=== PATIENT | male | born 1960 | race Caucasian/White ===

== ENCOUNTER 2018-05-01 20:40 | Emergency (ER) | payer MEDICARE, MEDICAID, SELFPAY ==
[2018-05-01 20:41] VITALS: BP 145/81; PULSE 74; RESP 16; TEMP 36.6; O2SAT 96; BMI 32.0
[2018-05-01] MEDS: 0.9% Normal Saline 1,000 ML 125 ML IV (21:11)
[2018-05-01 21:32] LABS: Anion Gap 7 (5-15); BUN 29 mg/dL (7-18); BUN/Creat Ratio 25.9 RATIO (10-20); Calcium,Total 8.9 mg/dL (8.5-10.1); Chloride 109 mmol/L (98-107); Creatinine, Serum 1.12 mg/dL (0.70-1.30); EST Glomerular Filtration Rate 71 mL/min (>60); Est Glom Filt Rate - Afr Amer 86 mL/min (>60); Estimated Creatinine Clearance 73.33 ml/min; Glucose 98 mg/dL (74-106); Potassium 3.4 mmol/L (3.5-5.1); Sodium Level 142 mmol/L (136-145)
[2018-05-01 21:35] LABS: Absolute Lymphocyte Count 4.97 X10^3/ul (0.83-4.51); Absolute Neutrophil Count 5.7 X10^3/uL (2.0-7.7); Basophil# 0.04 X10^3/uL; Basophil% 0.3 % (0-1); Eosinophil# 0.24 X10^3/uL; Hematocrit 46.3 % (40-54); Hemoglobin 15.6 g/dl (13.0-16.5); Lymphocyte # 4.97 X10^3/ul (4.0); Lymphocyte % 40.8 % (19-41); Mean Corp Hgb Conc 33.7 g/gl (32-36); Mean Corpuscular Hgb 31.6 pg (27.0-32.0); Mean Corpuscular Volume 93.9 fL (80-94); Monocyte# 1.23 X10^3/uL; Monocyte% 10.1 % (0-10); Neutrophil # 5.68 X10^3/uL (2.7-7.7); Neutrophil % 46.6 % (47-70); POSITIVE COUNT NO; POSITIVE DIFFERENTIAL NO; POSITIVE MORPHOLOGY NO; Platelet Count 169 K/mm3 (150-450); RBC Distribution Width CV 14.2 % (11.6-14.6); RBC Distribution Width SD 47.2 fl (35.1-43.9); Red Blood Count 4.93 M/mm3 (4.6-6.2); White Blood Count 12.2 K/mm3 (4.4-11.0)
--- NOTE | 2018-05-01 21:46 | ED.DCSUM_ITS ---
- ER Visit Summary Date of Service: 05/01/18 Chief Complaint: [Rectal bleeding] History of Present Illness: The patient is a 58 M [presents to the emergency department with rectal bleeding started half an hour ago. Patient states that he felt like he needed to have a bowel movement and initially passed stool that was performed followed by blood dripping into the toilet. Patient states that Dripping noticed some couple small clots for about 15 minutes before it resolved. Patient denies any abdominal pain. He denies any rectal trauma. He has never had anything like this happen before. He denies recent illness. Patient is not currently on any blood thinners. He does have a history of hypertension, peptic ulcer disease, pancreatitis, and coronary artery disease. Patient states that his last colonoscopy was about 3 years ago when he had some polyps noted at that time.] Physical Examination: HEENT-PERRLA, EOMI. Cranial nerves II through XII grossly intact. TMs clear. Mucous membranes moist. No adenopathy. Cardiovascular-regular rate and rhythm without murmur or ectopy Lungs-clear to auscultation, chest wall stable without crepitus or subcu emphysema Abdomen-normoactive bowel sounds, soft, nontender, no rebound or rigidity, no peritoneal signs. Rectal exam-patient had some gross blood noted around the anus with no external hemorrhoids noted. Patient did have palpable internal hemorrhoid about 6 o'clock position. There is no active bleeding currently. Extremities-intact ?4, normal range of motion, normal pulses, atraumatic] Test Results: [Orthostatic vital signs were negative. CBC with differential obtained showed a white blood cell count of 12.2, hemoglobin 15.6, hematocrit 46, platelets 169. Chemistries were unremarkable. BUN was 29 and creatinine was 1.12.] Emergency Department Course and Treatment: [Patient case was discussed with Dr. Justin Russell who is on for general surgery. I feel patient is stable for discharge to home. He has had no further bleeding in the department.] Treatment Plan: [Follow-up with general surgery for further evaluation possible colonoscopy. Patient advised to return if persistent heavy bleeding, lightheadedness, [place] pain, fever, or condition should worsen anyway.] Disposition: [Discharged home in stable condition] Impression: [Lower GI bleed-stable] This note was generated with [employer] software. It may contain incorrect words, spelling, and punctuation that were not noted in review of the chart prior to signing ED Disposition - Plan for ED Patient: Chief Complaint: GI Bleed Referrals: Paula Espinosa MD [Primary Care Provider] -
--- NOTE | 2018-05-01 21:46 | ED.DEP ---
ED Disposition - Plan for ED Patient: Chief Complaint: GI Bleed Instructions: ED Bleed UGI Stable Referrals: Paula Espinosa MD [Primary Care Provider] - Justin Tucker MD [STAFF PHYSICIAN] - 3-5 Days
[2018-05-01 21:59] VITALS: BP 131/78; BP 144/93; BP 145/85; PULSE 59; PULSE 61; PULSE 63
--- OUTSIDE RECORDS SUMMARY | 2018-08-03 14:04 | XMS RPT_ITS ---
:1960 Author Organization [place] Care Team Providers Name Role Phone Jesús [facility] Unavailable Selena Faust Attending Unavailable TALAMPAS, TUTU D Referring Unavailable TALAMPAS, TUTU D Attending Unavailable MARITZA HUGHES (LEASING MACHINE TENDER) Referring Unavailable TALAMPAS, TUTU Cassi Referring Unavailable TALAMPAS, TUTU D Attending Unavailable MARITZA HUGHES (LEASING MACHINE TENDER) Referring Unavailable OVI HUTCHISON Attending Unavailable OVI HUTCHISON Referring Unavailable OVI HUTCHISON Attending Unavailable SAEED FRAUSTO (KICK PRESS OPERATOR) Referring Unavailable OVI HUTCHISON Attending Unavailable IMCA Referring Unavailable TALAMPAS, TUTU Primary Care Unavailable OVI HUTCHISON Attending Unavailable OVI HUTCHISON Referring Unavailable TALAMPAS, TUTU Primary Care Unavailable PROBLEMS PROBLEMS DATE TYPE CONDITION / CODE ATTENDING STATUS SOURCE 04/04/2018 Active Pure NA Active [place] [facility] , unspecified / [place] E78.00(ICD-10) Repository 10/05/2017 Active Unknown / TALAMPAS, TUTU Active [place] UNK(Unknown) [facility] [place] Repository 09/10/2017 Active Atherosclerotic FOSTER, Active [place] heart disease of [facility] Other [place] coronary [place] artery without Repository angina pectoris / I25.10(ICD-10) 09/10/2017 Active Essential (primary) FOSTER, Active [place] hypertension / [facility] Other I10(ICD-10) [place] Repository 09/10/2017 Admitting Unknown / FOSTER, Active [place] [facility] diagnosis UNK(Unknown) [facility] Repository 08/19/2017 Active Impaired fasting NA Active [place] glucose / [facility] Main R73.01(ICD-10) [place] Repository 08/19/2017 Active Other care home NA Active [place] (current) [facility] Main therapy / [place] Z79.899(ICD-10) Repository PROCEDURES PROCEDURES No Procedure Records FoundRESULTS RESULTS PROGRESS Observed: 05/25/2018 Status: COMPLETED Source: [place] 1:17 PM [facility] REPOSITORY HNO ID: [id number] Author: Ovi Hutchison Service: (none) Author Type: Physician Type: Progress Notes Filed: 05/25/2018 6:08 PM Note Text: PERTINENT CARDIAC HISTORY ASHD - PCI Cx 2008 HTN HL Tobaccoism ADHERENCE TO GUIDELINES SARAHI-I or ARB for HF with prior LVEF<40 (NQF 0081) - N/A ASA or Plavix for ASHD (NQF 0067) - ,et Beta sirena for ASHD with prior AR or prior LVEF<40 (NQF 0070) - N/A Beta sirena for HF with prior LVEF<40 (NQF 0083) - N/A SARAHI-I or ARB for ASHD with DM or prior LVEF<40 (NQF 0066) - met Statin therapy for ASHD or FHL or DM - met BMI documented and plan if >25 (NQF 0421) - lifestyle recommendation form Tobacco use screening and referral (NQF 0028) - lifestyle recommendation form Recommendation for whole food, plant based diet - lifestyle recommendation form CLINICAL IMPRESSION/PLAN: Raphael Davis is doing well. His coronary disease is well compensated. Blood pressure could use better control. He has been taking Prinivil and nonsteroidal in the morning. I suggested that he change the timing of his Prinivil to bedtime. I've asked him to contact me with vital signs next week. We may need to increase lisinopril for better blood pressure control. I've encouraged him to continue exercise. He tells me that he is not yet bad enough to have surgery on his spinal stenosis. I recommend follow-up in 8 months or as needed. Written and verbal health teaching given to patient, patient verbalizes understanding and agrees with treatment plan. DIAGNOSIS FOR VISIT: ASHD Hypertension HISTORY OF PRESENT ILLNESS Raphael Davis returns for follow-up of his coronary disease and hypertension. He has been limited somewhat by his spinal stenosis but still walks. He's had no chest discomfort. He denies orthopnea, edema, syncope, palpitations, TIAs, amaurosis or claudication. ALLERGIES: ALLERGIES Allergen Reactions - Bees Anaphylaxis - Penicillins Vomiting Can take amoxil - Shellfish Itching given benadryl with heart cath dye - tolerated - Simvastatin Other: See Comments CK Elevations and body aches - Sulfa (Sulfonamide * Doesn't know CURRENT OUTPATIENT MEDICATIONS: lisinopril (ZESTRIL, PRINIVIL) 5 mg tablet Take 1 tablet by mouth daily at bedtime. predniSONE (DELTASONE) 10 mg tablet Take 1-2 tablets by mouth once daily as needed. As directed nitroglycerin sublingual (NITROQUICK) 0.4 mg SL tablet Dissolve 1 tablet under the tongue every 5 minutes as needed for Chest Pain. IF NO PAIN RELIEF, CALL 911 cyclobenzaprine (FLEXERIL) 10 mg tablet Take 0.5-1 tablets by mouth three times daily as needed for Muscle Spasm. ibuprofen (MOTRIN) 600 mg tablet Take 1 tablet by mouth every 6 hours as needed for Pain. Take with food and stay hydrated sildenafil (VIAGRA) 50 mg tablet Take 1 tablet by mouth as needed. TAKE 30-60 MINUTES BEFORE SEXUAL INTERCOURSE NEEDED. ranitidine (ZANTAC) 150 mg tablet Take 1 tablet by mouth twice daily. atorvastatin (LIPITOR) 80 mg tablet Take 0.5 tablets by mouth once daily. fexofenadine (MARIELY) 180 mg tablet Take 1 tablet by mouth once daily as needed. (for allergies and congestion associated with vertigo) metoprolol succinate ER (TOPROL XL) 50 mg 24 hr tablet Take 0.5 tablets by mouth twice daily. aspirin, enteric coated (ECOTRIN LOW STRENGTH) 81 mg EC tablet Take 1 tablet by mouth once daily. PHYSICAL EXAMINATION: VITAL SIGNS: BP 150/89 Pulse 70 Ht 5' 10 (1.78m) Wt 218 lb 12.8 oz (99.2kg) BMI 31.39 kg/(m2). Chest: Clear to auscultation. Trachea is midline. Air entry is equal. Cardiac: Regular rhythm. S1 and S2 are normal. PMI is nondisplaced. There is a soft systolic ejection murmur. Carotids are brisk without bruits. JVP is less than 10 cm. Abdomen: Soft and nontender. There are no pulsatile masses or bruits. No liver enlargement. Bowel sounds are active. Extremities: No edema. Pulses are intact and symmetrical. Recent labs were reviewed. Renal function is normal. LDL was 89. Electronically Signed: Ovi Hutchison MD May 25, 2018 1:17 PM CC: Tutu Espinosa MD CNOV Observed: 05/25/2018 Status: COMPLETED Source: [place] 1:00 PM [facility] REPOSITORY Office Visit (CAWSTR) RAPHAEL DAVIS ([id number]) 1960 M Date Time Provider Department 05/25/18 1:00 PM OVI HUTCHISON CAWSTR During your visit today, we recorded the following information about you: Pulse Blood pressure Weight Height 70/minute 150/89 99.2 kg 1.778 m Ovi Hutchison MD 05/25/2018 6:08 PM Signed PERTINENT CARDIAC HISTORY ASHD - PCI Cx 2008 HTN HL Tobaccoism ADHERENCE TO GUIDELINES SARAHI-I or ARB for HF with prior LVEF<40 (NQF 0081) - N/A ASA or Plavix for ASHD (NQF 0067) - ,et Beta sirena for ASHD with prior AR or prior LVEF<40 (NQF 0070) - N/A Beta sirena for HF with prior LVEF<40 (NQF 0083) - N/A SARAHI-I or ARB for ASHD with DM or prior LVEF<40 (NQF 0066) - met Statin therapy for ASHD or FHL or DM - met BMI documented and plan if >25 (NQF 0421) - lifestyle recommendation form Tobacco use screening and referral (NQF 0028) - lifestyle recommendation form Recommendation for whole food, plant based diet - lifestyle recommendation form CLINICAL IMPRESSION/PLAN: Raphael Davis is doing well. His coronary disease is well compensated. Blood pressure could use better control. He has been taking Prinivil and nonsteroidal in the morning. I suggested that he change the timing of his Prinivil to bedtime. I've asked him to contact me with vital signs next week. We may need to increase lisinopril for better blood pressure control. I've encouraged him to continue exercise. He tells me that he is not yet bad enough to have surgery on his spinal stenosis. I recommend follow-up in 8 months or as needed. Written and verbal health teaching given to patient, patient verbalizes understanding and agrees with treatment plan. DIAGNOSIS FOR VISIT: ASHD Hypertension HISTORY OF PRESENT ILLNESS Raphael Davis returns for follow-up of his coronary disease and hypertension. He has been limited somewhat by his spinal stenosis but still walks. He's had no chest discomfort. He denies orthopnea, edema, syncope, palpitations, TIAs, amaurosis or claudication. ALLERGIES: ALLERGIES Allergen Reactions - Bees Anaphylaxis - Penicillins Vomiting Can take amoxil - Shellfish Itching given benadryl with heart cath dye - tolerated - Simvastatin Other: See Comments CK Elevations and body aches - Sulfa (Sulfonamide * Doesn't know CURRENT OUTPATIENT MEDICATIONS: lisinopril (ZESTRIL, PRINIVIL) 5 mg tablet Take 1 tablet by mouth daily at bedtime. predniSONE (DELTASONE) 10 mg tablet Take 1-2 tablets by mouth once daily as needed. As directed nitroglycerin sublingual (NITROQUICK) 0.4 mg SL tablet Dissolve 1 tablet under the tongue every 5 minutes as needed for Chest Pain. IF NO PAIN RELIEF, CALL 911 cyclobenzaprine (FLEXERIL) 10 mg tablet Take 0.5-1 tablets by mouth three times daily as needed for Muscle Spasm. ibuprofen (MOTRIN) 600 mg tablet Take 1 tablet by mouth every 6 hours as needed for Pain. Take with food and stay hydrated sildenafil (VIAGRA) 50 mg tablet Take 1 tablet by mouth as needed. TAKE 30-60 MINUTES BEFORE SEXUAL INTERCOURSE NEEDED. ranitidine (ZANTAC) 150 mg tablet Take 1 tablet by mouth twice daily. atorvastatin (LIPITOR) 80 mg tablet Take 0.5 tablets by mouth once daily. fexofenadine (MARIELY) 180 mg tablet Take 1 tablet by mouth once daily as needed. (for allergies and congestion associated with vertigo) metoprolol succinate ER (TOPROL XL) 50 mg 24 hr tablet Take 0.5 tablets by mouth twice daily. aspirin, enteric coated (ECOTRIN LOW STRENGTH) 81 mg EC tablet Take 1 tablet by mouth once daily. PHYSICAL EXAMINATION: VITAL SIGNS: BP 150/89 Pulse 70 Ht 5' 10 (1.78m) Wt 218 lb 12.8 oz (99.2kg) BMI 31.39 kg/(m2). Chest: Clear to auscultation. Trachea is midline. Air entry is equal. Cardiac: Regular rhythm. S1 and S2 are normal. PMI is nondisplaced. There is a soft systolic ejection murmur. Carotids are brisk without bruits. JVP is less than 10 cm. Abdomen: Soft and nontender. There are no pulsatile masses or bruits. No liver enlargement. Bowel sounds are active. Extremities: No edema. Pulses are intact and symmetrical. Recent labs were reviewed. Renal function is normal. LDL was 89. Electronically Signed: Ovi Hutchison MD May 25, 2018 1:17 PM CC: MD Ovi Waller MD 05/25/2018 1:18 PM Signed LIFESTYLE CHANGE A healthy lifestyle is the most important component of your overall treatment plan. Please give serious thought to the following areas and commit to making terminal manager changes. EAT A WHOLE FOOD, PLANT BASED DIET The nutrition your body gets is more important than the medicine you take. What matters most is the overall way you eat. We encourage you to minimize the use of animal products (which include dairy and all meats except fatty fish) and use whole, unprocessed plant foods to provide your protein, vitamins and other nutrients. We have a lot of information to share with you on this topic. This is not a diet. It is a way of life that you will keep with you. EXERCISE REGULARLY It is not important to spend hours in the gym, lifting weights and perspiring heavily. A total of 2-3 hours per week of aerobic (causing you to be moderately short of breath) exercise is sufficient to improve your health. Talk to us before you begin a new exercise program, if you have heart disease or experience shortness of breath or chest pain. REDUCE STRESS Chronic emotional and physical stress leads to disease. Ways of reducing stress include meditation, visualization, prayer, yoga and other forms of relaxation therapy. Consistency is the ceja. Find a technique that works for you and do it every day. CULTIVATE RELATIONSHIPS Loneliness and isolation have a major negative impact on health. Seek out others who can love, care for and nurture you. Avoid hurtful relationships. MAINTAIN IDEAL BODY WEIGHT The best way to do this is to do all the things above. Our bodies naturally find the right weight if we keep moving and feed ourselves the right food. If your BMI is greater than 25, we strongly recommend a referral to a weight management program. Please speak to us or your family physician about available programs. AVOID NICOTINE IN ALL FORMS This includes all tobacco products, whether chewed, smoked, vaped, or rubbed on the skin. Smoking cessation programs, which can make use of tobacco substitutes, medications to suppress cravings and behavior management, are available. Please contact your family physician about programs in your area. Referring Provider: OVI HUTCHISON [[id number]] Allergies As of Date: 05/25/2018 Noted Allergy Reaction BEES 03/01/2008 10 - Anaphylaxis PENICILLINS 06/04/2006 11 - Vomiting Comments: Can take amoxil SHELLFISH 10/31/2007 9 - Itching Comments: given benadryl with heart cath dye - tolerated SIMVASTATIN 12/10/2015 14 - Other: See Comments Comments: CK Elevations and body aches SULFA (SULFONAMIDE ANTIBIOTICS) 10/31/2007 Comments: Doesn't know Date Reviewed: 05/25/2018 Reviewed by: Lori Calloway MA - Fully Assessed Reason for Visit: Established Patient [175] Primary Visit Diagnosis:Essential hypertension [I10] Other Visit Diagnosis:ASHD (arteriosclerotic heart disease) [I25.10] Order(s):lisinopril (ZESTRIL, PRINIVIL) 5 mg tabletTake 1 tablet by mouth daily at bedtime.Disp: Rfl: Prescriptions as of 05/25/2018 Sig: LISINOPRIL 5 MG TABLET Take 1 tablet by mouth daily * PREDNISONE 10 MG TABLET Take 1-2 tablets by mouth onc* NITROGLYCERIN 0.4 MG SUBLINGU* Dissolve 1 tablet under the t* CYCLOBENZAPRINE 10 MG TABLET Take 0.5-1 tablets by mouth t* IBUPROFEN 600 MG TABLET Take 1 tablet by mouth every * SILDENAFIL 50 MG TABLET Take 1 tablet by mouth as nee* RANITIDINE 150 MG TABLET Take 1 tablet by mouth twice * ATORVASTATIN 80 MG TABLET Take 0.5 tablets by mouth onc* FEXOFENADINE 180 MG TABLET Take 1 tablet by mouth once d* METOPROLOL SUCCINATE ER 50 MG* Take 0.5 tablets by mouth twi* ASPIRIN 81 MG TABLET,DELAYED * Take 1 tablet by mouth once d* Problem List As Of Date 05/25/2018 Noted Resolved Coronary atherosclerosis [I25.10] Other acute and subacute form of ischemic heart*INVALID FOR*11/01/2016 More... Family history of diabetes mellitus [Z83.3] INVALID FOR*05/02/2015 Family history of ischemic heart disease [Z82.4*INVALID FOR*05/02/2015 TOBACCO USE DISORDER [F17.200] INVALID FOR* More... More... Hyperlipidemia [E78.5] INVALID FOR* Tear of medial cartilage or meniscus of knee, c*INVALID FOR*05/02/2015 Pain in Joint, Shoulder Region [M25.519] INVALID FOR* Other affections of shoulder region, not elsewh*INVALID FOR*05/02/2015 Biceps tendonitis [M75.20] INVALID FOR*05/02/2015 Spinal stenosis, lumbar region, without neuroge*INVALID FOR* More... Capsulitis [M77.9] INVALID FOR*05/02/2015 GUERA (obstructive sleep apnea) [G47.33] More... 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] INVALID FOR* Actinic Keratoses: Premalignant AK's [L57.0] INVALID FOR* Other Seborrheic Keratoses [L82.1] INVALID FOR* Excoriation [T14.8XXA] INVALID FOR*05/02/2015 Solar Lentigines [L81.4] INVALID FOR* Ephelides [L81.2] INVALID FOR* Actinic skin damage [L57.8] INVALID FOR*05/02/2015 Chronic back pain [M54.9, G89.29] INVALID FOR* Lumbar spondylosis [M47.816] INVALID FOR* Ulnar neuropathy of left upper extremity [G56.2*INVALID FOR* Neoplasm of Uncertain Behavior (NUB) of skin: R*INVALID FOR* Scar condition and fibrosis of skin [L90.5] INVALID FOR*05/02/2015 Hypertrophic scar [L91.0] INVALID FOR* Keloid scar [L91.0] INVALID FOR* Personal history of other malignant neoplasm of*INVALID FOR*03/18/2013 Surgical Scars [L90.5] INVALID FOR*05/02/2015 Postinflammatory skin changes [R23.4] INVALID FOR*05/02/2015 H/O BCC Skin Cancer left confucianist: S/P Moh's Surg*INVALID FOR*05/02/2015 Acute pancreatitis [K85.90] INVALID FOR*04/26/2017 BPH (benign prostatic hyperplasia) [N40.0] INVALID FOR* Kidney stone [N20.0] INVALID FOR* Obesity, unspecified [E66.9] INVALID FOR*03/13/2015 Non morbid obesity due to excess calories [E66.*INVALID FOR* IFG (impaired fasting glucose) [R73.01] INVALID FOR* Other instructions from your clinician: LIFESTYLE CHANGE A healthy lifestyle is the most important component of your overall treatment plan. Please give serious thought to the following areas and commit to making terminal manager changes. EAT A WHOLE FOOD, PLANT BASED DIET The nutrition your body gets is more important than the medicine you take. What matters most is the overall way you eat. We encourage you to minimize the use of animal products (which include dairy and all meats except fatty fish) and use whole, unprocessed plant foods to provide your protein, vitamins and other nutrients. We have a lot of information to share with you on this topic. This is not a diet. It is a way of life that you will keep with you. EXERCISE REGULARLY It is not important to spend hours in the gym, lifting weights and perspiring heavily. A total of 2-3 hours per week of aerobic (causing you to be moderately short of breath) exercise is sufficient to improve your health. Talk to us before you begin a new exercise program, if you have heart disease or experience shortness of breath or chest pain. REDUCE STRESS Chronic emotional and physical stress leads to disease. Ways of reducing stress include meditation, visualization, prayer, yoga and other forms of relaxation therapy. Consistency is the ceja. Find a technique that works for you and do it every day. CULTIVATE RELATIONSHIPS Loneliness and isolation have a major negative impact on health. Seek out others who can love, care for and nurture you. Avoid hurtful relationships. MAINTAIN IDEAL BODY WEIGHT The best way to do this is to do all the things above. Our bodies naturally find the right weight if we keep moving and feed ourselves the right food. If your BMI is greater than 25, we strongly recommend a referral to a weight management program. Please speak to us or your family physician about available programs. AVOID NICOTINE IN ALL FORMS This includes all tobacco products, whether chewed, smoked, vaped, or rubbed on the skin. Smoking cessation programs, which can make use of tobacco substitutes, medications to suppress cravings and behavior management, are available. Please contact your family physician about programs in your area. Prescriptions ordered this encounter Disp Refills Start End LISINOPRIL 5 MG TABLET 05/25/2018 Class: Med Update Route: ORAL Sig: Take 1 tablet by mouth daily at bedtime. Medications Discontinued During This Encounter lisinopril (ZESTRIL, PRINIVIL) 5 mg * 90 t* 3 10/05/2017 05/25/2018 Route: ORAL Sig: Take 1 tablet by mouth once daily. Disc: Reason for discontinue is not on file. Encounter Status:Closed by OVI HUTCHISON MD on 05/25/18 DISCHARGE INSTRUCTION Observed: 05/01/2018 Status: F Source: [place] 9:47 PM [facility] REPOSITORY [facility] Medical Records Department [address] [place] [id number] Discharge Instruction 05/01/182145 MR#: [id number] Acct: [id number] Name: RAPHAEL DAVIS Rep #: [id number] : 1960 58 From: Selena Faust DO PCP: Tutu Espinosa MD Status: REG ER ED Disposition - Plan for ED Patient: Chief Complaint: GI Bleed Instructions: ED Bleed UGI Stable Referrals: Tutu Espinosa MD [Primary Care Provider] - Justin Tucker MD [STAFF PHYSICIAN] - 3-5 Days What to do if you have Problems For any increased pain, shortness of breath, bleeding, nausea or vomiting, chest pain, or any unexpected problems, contact your Primary Care Provider. Call [facility] ([phone]) or report to the closest Emergency Room. Call 911 if necessary. 05/01/182146 <Electronically signed by Selena Faust DO> Date Selena Faust DO Cosigner Signature (If Indicated): Date CC: Tutu Espinosa MD EMERGENCY DEPARTMENT Observed: 05/01/2018 Status: F Source: [place] SUMMARY 9:46 PM [facility] REPOSITORY [facility] Medical Records Department [address] [place] [address] Emergency Department Summary 05/01/18 2143 MR#: [id number] Acct: [id number] Name: RAPHAEL DAVIS Rep #: [id number] : 1960 58 From: Selena Faust DO PCP: Tutu Espinosa MD Status: REG ER - ER Visit Summary Date of Service: 05/01/18 Chief Complaint: [Rectal bleeding] History of Present Illness: The patient is a 58 M [presents to the emergency department with rectal bleeding started half an hour ago. Patient states that he felt like he needed to have a bowel movement and initially passed stool that was performed followed by blood dripping into the toilet. Patient states that Dripping noticed some couple small clots for about 15 minutes before it resolved. Patient denies any abdominal pain. He denies any rectal trauma. He has never had anything like this happen before. He denies recent illness. Patient is not currently on any blood thinners. He does have a history of hypertension, peptic ulcer disease, pancreatitis, and coronary artery disease. Patient states that his last colonoscopy was about 3 years ago when he had some polyps noted at that time.] Physical Examination: HEENT-PERRLA, EOMI. Cranial nerves II through XII grossly intact. TMs clear. Mucous membranes moist. No adenopathy. Cardiovascular-regular rate and rhythm without murmur or ectopy Lungs-clear to auscultation, chest wall stable without crepitus or subcu emphysema Abdomen-normoactive bowel sounds, soft, nontender, no rebound or rigidity, no peritoneal signs. Rectal exam-patient had some gross blood noted around the anus with no external hemorrhoids noted. Patient did have palpable internal hemorrhoid about 6 o'clock position. There is no active bleeding currently. Extremities-intact 4, normal range of motion, normal pulses, atraumatic] Test Results: [Orthostatic vital signs were negative. CBC with differential obtained showed a white blood cell count of 12.2, hemoglobin 15.6, hematocrit 46, platelets 169. Chemistries were unremarkable. BUN was 29 and creatinine was 1.12.] Emergency Department Course and Treatment: [Patient case was discussed with Dr. Justin Russell who is on for general surgery. I feel patient is stable for discharge to home. He has had no further bleeding in the department.] Treatment Plan: [Follow-up with general surgery for further evaluation possible colonoscopy. Patient advised to return if persistent heavy bleeding, lightheadedness, Paloma pain, fever, or condition should worsen anyway.] Disposition: [Discharged home in stable condition] Impression: [Lower GI bleed-stable] This note was generated with [employer] dictation software. It may contain incorrect words, spelling, and punctuation that were not noted in review of the chart prior to signing ED Disposition - Plan for ED Patient: Chief Complaint: GI Bleed Referrals: Tutu Espinosa MD [Primary Care Provider] - What to do if you have Problems For any increased pain, shortness of breath, bleeding, nausea or vomiting, chest pain, or any unexpected problems, contact your Primary Care Provider. Call [facility] ([phone]) or report to the closest Emergency Room. Call 911 if necessary. 05/01/18 2146 <Electronically signed by Selena Faust DO> Date Selena Faust DO Cosigner Signature (If Indicated): Date CC: Tutu Espinosa MD BASIC METABOLIC Collected: 05/01/2018 Status: F Source: [place] PROFILE (BMP) 8:18 PM [facility] REPOSITORY TYPE CODE TESTS RESULT OUT OF RANGE REFERENCE UNITS LAB L501.0100 74-106 mg/dL Normal GLU 98 Result Comment: Please note revised GLUCOSE reference range effective 2017. LAB L501.1000 7-18 mg/dL High BUN 29 LAB L501.1100 0.70-1.30 mg/dL Normal CREAT,SERUM 1.12 Result Comment: The validity of the calculated GFR AND GFRAA in patients over 70 years has not been determined. Clinical correlation is essential. LAB L501.1110 >60 mL/min Normal EST GFR 71 Result Comment: Non- GFR Calc LAB L501.1115 >60 mL/min Normal EST GFR - AA 86 Result Comment: GFR Calc LAB L501.1255 ml/min Normal Estimated CRCL 73.33 LAB L501.1300 10-20 RATIO High BUN/CRE 25.9 LAB L501.2200 8.5-10 mg/dL Normal .1 CA 8.9 LAB L501.5300 136-14 mmol/L Normal 5 NA 142 LAB L501.5600 3.5-5. mmol/L Low 1 K 3.4 LAB L501.5900 98-107 mmol/L High CL 109 LAB L501.6100 21.0-3 mmol/L Normal 2.0 CO2 26.0 LAB L501.6200 5-15 Normal GAP 7 Performed By: #### L500.2500 #### [facility]. [place], [place], [address] CBC W/DIFF, AUTOMATED Collected: 05/01/2018 Status: F Source: YOANA 8:18 PM [facility] REPOSITORY TYPE CODE TESTS RESULT OUT OF RANGE REFERENCE UNITS LAB L100.1000 4.4-11.0 K/mm3 High WBC 12.2 LAB L100.1200 4.6-6.2 M/mm3 Normal RBC 4.93 LAB L100.1300 13.0-16.5 g/dl Normal HGB 15.6 LAB L100.1400 40-54 % Normal HCT 46.3 LAB L100.1500 80-94 fL Normal MCV 93.9 LAB L100.1600 27.0-32.0 pg Normal MCH 31.6 LAB L100.1700 32-36 g/gl Normal MCHC 33.7 LAB L100.1810 11.6-14.6 % Normal RDW CV 14.2 LAB L100.1820 35.1-43.9 fl High RDW SD 47.2 LAB L100.1900 150-450 K/mm3 Normal PLT 169 LAB L100.2000 6.2-12.0 fl Normal MPV 12.0 LAB L100.2100 47-70 % Low NEUT% 46.6 LAB L100.2200 19-41 % Normal LY% 40.8 LAB L100.2300 0-10 % High MONO% 10.1 LAB L100.2400 0-5 % Normal EO% 2.0 LAB L100.2500 0-1 % Normal BASO% 0.3 LAB L100.2550 0.0-0.9 % Normal IM GRAN % 0.200 Result Comment: IG% - Immature Granulocytes (promyelocytes, myelocytes and metamyelocytes) > 1% indicates that a LEFT SHIFT is Present. LAB L100.2620 2.0-7.7 X10 3/uL Normal Absolute Neut 5.7 LAB L100.2720 0.83-4.51 X10 3/ul High Absolute Lymph 4.97 Performed By: #### L100.0100 #### [facility] [address], [place], [id number] TYPE AND SCREEN Collected: 05/01/2018 Status: F Source: [place] 8:18 PM [facility] REPOSITORY Order Comment: Reason for Type AND Screen/Red Cells: HEMORRHAGE, GI BLEED TYPE CODE TESTS RESULT OUT OF RANGE REFERENCE UNITS LAB B10.0800 A Normal BLOOD TYPE GEL POSITIVE LAB B100.4000 Normal Antibody NEGATIVE Screen Performed By: #### B101.7450 #### [facility] [address] [place], [place], [address] PROGRESS Observed: 04/12/2018 Status: COMPLETED Source: [place] 8:56 AM [facility] REPOSITORY HNO ID: [id number] Author: Tutu Espinosa Service: (none) Author Type: Physician Type: Progress Notes Filed: 04/28/2018 11:39 PM Note Text: This note was created using NoteWriter. Subjective Raphael Davis is a 58 year old male. Ongoing back pain issues. Last few months really getting to me Left side back pain that radiates down leg. Okay when wakes up then severe pain when gets up. Numbness and tingling in leg. No injury a few months ago. Some nights causes some pain--hard to get comfortable. Tried recliner. has topicals heating pads. thumber massager hot showers hot buckley bags, also cold bags Eases as keeps moving during the day By night, tightens up. Tightens up overnight Does Fay exercises from book from PT. Stretching does help to get going in AM but takes longer to get stretched out. Used to not last that long when firts got up--just 10 to 15 minutes but now hours. Back injections with Dr. Al had helped just first time then not better after next shots. Does not want pain meds--does not like how makes him feel. Either jittery or sick in his head. Prednisone helps. Staying active has helped. Not eating breakfast or lunch. Dinner and maybe popcorn for snacks. PAST MEDICAL HISTORY Diagnosis Date - Acute pancreatitis 03/28/2013 - Benign neoplasm of colon - Benign neoplasm of rectum and anal canal - Coronary atherosclerosis of unspecified type of vessel, [place] or graft stent placed 11/28/2007 - Family history of diabetes mellitus 10/31/2007 - Family history of ischemic heart disease 10/31/2007 - Heart attack (HCC) 2007 - Obesity, unspecified 10/31/2007 - GUERA (obstructive sleep apnea) - Other acute and subacute form of ischemic heart disease 09/2007 [facility] ER then trans to [facility] - Other and unspecified hyperlipidemia - Pancreatitis - Peptic ulcer, unspecified site, unspecified as acute or chronic, without mention of hemorrhage, perforation, or obstruction - Snoring - Tobacco use disorder 10/31/2007 Current Outpatient Prescriptions: ibuprofen (MOTRIN) 600 mg tablet Take 1 tablet by mouth every 6 hours as needed for Pain. Take with food and stay hydrated predniSONE (DELTASONE) 10 mg tablet Take 1-2 tablets by mouth once daily as needed. As directed sildenafil (VIAGRA) 50 mg tablet Take 1 tablet by mouth as needed. TAKE 30-60 MINUTES BEFORE SEXUAL INTERCOURSE NEEDED. lisinopril (ZESTRIL, PRINIVIL) 5 mg tablet Take 1 tablet by mouth once daily. ranitidine (ZANTAC) 150 mg tablet Take 1 tablet by mouth twice daily. atorvastatin (LIPITOR) 80 mg tablet Take 0.5 tablets by mouth once daily. fexofenadine (MARIELY) 180 mg tablet Take 1 tablet by mouth once daily as needed. (for allergies and congestion associated with vertigo) metoprolol succinate ER (TOPROL XL) 50 mg 24 hr tablet Take 0.5 tablets by mouth twice daily. nitroglycerin sublingual (NITROQUICK) 0.4 mg SL tablet Dissolve 1 tablet under the tongue every 5 minutes as needed for Chest Pain. IF NO PAIN RELIEF, CALL 911 aspirin, enteric coated (ECOTRIN LOW STRENGTH) 81 mg EC tablet Take 1 tablet by mouth once daily. No current facility-administered medications for this visit. Social History Marital status: Spouse name: Maribel Years of education: Number of children: 2 Occupational History Occupation Employer Comment [employer] Social History Main Topics Smoking status: Current Every Day Smoker Packs/day: 0.50 Years: 35.00 Types: Cigarettes Smokeless tobacco: Never Used Alcohol use: No Drug use: No Other Topics Concern Service No Blood Transfusions No Caffeine Concern Yes Comment:He is eliminating this currently Occupational Exposure No Comment:Disabled 2010 for health probs Hobby Hazards No Sleep Concern Yes Comment:Always, some concern about snoring Stress Concern Yes Weight Concern Yes Comment:Has gained since he is quitting smoking Special Diet Yes Comment:Watch red meat and fatty foods Back Care Yes Comment:Sometimes muscle spasms Exercise No Comment: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 Bike Helmet Not Asked Comment:Doesn't ride Seat Belt Yes Self-Exams No Review of Systems Cardiovascular: Negative. Musculoskeletal: Positive for back pain. Se HPI Neurological: Positive for numbness. See HPI Objective BP 138/86 (BP Site: Left Arm, BP Position: Sitting, BP Cuff Size: Regular Adult) Pulse 60 Resp 16 Wt 102.5 kg (226 lb) BMI 32.43 kg/m? Last 5 Encounter BP Readings: Date: BP: 04/12/2018 138/86 10/05/2017 130/82 09/10/2017 132/84 04/26/2017 122/80 01/05/2017 144/92[ (from Extended Vitals)[ Last 5 Encounter Wt Readings: Date: Wt: 04/12/2018 102.5 kg (226 lb) 10/05/2017 104.3 kg (230 lb) 09/10/2017 103.4 kg (228 lb) 04/26/2017 99.3 kg (219 lb) 01/05/2017 102 kg (224 lb 12.8 oz) Physical Exam Constitutional: He is oriented to person, place, and time. He appears well-developed and well-nourished. HENT: Head: Normocephalic and atraumatic. Eyes: Conjunctivae and EOM are normal. Cardiovascular: Normal rate and regular rhythm. Pulmonary/Chest: Effort normal and breath sounds normal. Abdominal: Soft. Bowel sounds are normal. Neurological: He is alert and oriented to person, place, and time. Skin: Skin is warm. Psychiatric: He has a normal mood and affect. His behavior is normal. Component Latest Ref Rng AND Units 08/14/2016 03/22/2017 08/19/2017 04/04/2018 WBC 3.70 - 11.00 k/uL 10.21 9.90 9.15 RBC 4.20 - 6.00 m/uL 5.21 5.20 5.23 Hemoglobin 13.0 - 17.0 g/dL 15.9 15.8 16.0 Hematocrit 39.0 - 51.0 % 50.6 48.8 50.2 MCV 80.0 - 100.0 fL 97.1 93.8 96.0 MCH 26.0 - 34.0 pG 30.5 30.4 30.6 MCHC 30.5 - 36.0 g/dL 31.4 32.4 31.9 RDW-CV 11.5 - 15.0 % 14.3 13.4 13.9 Platelet Count 150 - 400 k/uL 168 161 176 MPV 9.0 - 12.7 fL 12.8 (H) 12.3 12.2 Neut% % 70.7 Abs Neut (ANC) 1.45 - 7.50 k/uL 7.22 Lymph% % 23.6 Abs Lymph 1.00 - 4.00 k/uL 2.41 [place]% % 4.8 Abs [place] 0.00 - 0.86 k/uL 0.49 Eosin% % 0.4 Abs Eosin 0.00 - 0.45 k/uL 0.04 Baso% % 0.5 Abs Baso 0.00 - 0.10 k/uL 0.05 Nucleated Reds 0 /100 WBC 0.0 Absolute nRBC <0.01 k/uL 0.00 <0.01 <0.01 Diff Type Auto Diff Protein, Total 6.3 - 8.0 g/dL 7.1 6.6 6.7 7.0 Albumin 3.9 - 4.9 g/dL 4.6 4.4 4.3 4.5 Calcium 8.5 - 10.2 mg/dL 9.3 9.0 9.1 9.4 Bilirubin, Total 0.2 - 1.3 mg/dL 0.6 0.6 0.6 0.8 Alkaline Phosphatase 38 - 113 U/L 71 65 79 76 AST 14 - 40 U/L 18 20 18 19 Glucose 74 - 99 mg/dL 115 (H) 105 (H) 105 (H) 109 (H) BUN 9 - 24 mg/dL 25 (H) 19 20 23 Creatinine 0.73 - 1.22 mg/dL 1.10 1.10 1.18 1.14 Sodium 136 - 144 mmol/L 144 144 143 142 Potassium 3.7 - 5.1 mmol/L 3.9 4.0 3.9 4.0 Chloride 97 - 105 mmol/L 105 107 (H) 103 104 CO2 22 - 30 mmol/L 23 26 25 25 Anion Gap 9 - 18 mmol/L 16 11 15 13 ALT 10 - 54 U/L 18 18 20 15 eGFR- >60 >60 >60 >60 eGFR-All Other Races . >60 >60 >60 >60 Triglyceride <150 mg/dL 56 62 71 Cholesterol, Total <200 mg/dL 144 119 142 HDL Cholesterol >39 mg/dL 48 41 (L) 39 (L) VLDL Cholesterol <30 mg/dL 11 12 14 LDL Cholesterol <100 mg/dL 85 66 89 Fasting Time hrs 16 12 12 TC:HDL Ratio <5.10 3.00 2.90 3.64 LDL:HDL Ratio <2.54 1.77 1.61 2.28 Non HDL Cholesterol <130 mg/dL 96 78 (L) 103 Hemoglobin A1C 4.3 - 5.6 % 5.8 (H) 5.8 (H) 6.0 (H) 5.8 (H) Estimated Average Glucose mg/dL 120 120 126 120 CK 51 - 298 U/L 97 78 TSH 0.400 - 5.500 uU/mL 1.030 Assessment and Plan Encounter Diagnosis ICD-10-CM 1. Chronic left-sided low back pain with left-sided sciatica M54.42 cyclobenzaprine (FLEXERIL) 10 mg tablet G89.29 2. Lumbar radiculopathy, chronic M54.16 cyclobenzaprine (FLEXERIL) 10 mg tablet 3. Spinal stenosis, lumbar region, without neurogenic claudication M48.061 predniSONE (DELTASONE) 10 mg tablet cyclobenzaprine (FLEXERIL) 10 mg tablet 4. Coronary artery disease involving [place] coronary artery of [place] heart without angina pectoris I25.10 nitroglycerin sublingual (NITROQUICK) 0.4 mg SL tablet 5. Pure hypercholesterolemia E78.00 6. Non morbid obesity due to excess calories E66.09 7. IFG (impaired fasting glucose) R73.01 HGB A1C COMP METABOLIC PANEL 8. Encounter for long-term current use of medication Z79.899 COMP METABOLIC PANEL CBC 9. Tobacco use disorder F17.200 Will continue present management for back. As noted in HPI, does not want to take any pain meds like narcotics. Staying helps his back pain more than resting. Will let me know when needs referred to PT or pain management. Work on quitting smoking. Stable from cardiac standpoint but discussed that smoking is still the main risk for AR or stroke. Above issues addressed with patient. Patient involved in shared decision making for management of medical issues. History and medications reviewed. Epic updated as needed Refills taken care of and meds adjusted as indicated after reviewed history, exam and labs. Health Maintenance reviewed. Updated record and/or ordered tests as recorded. Encouraged on efforts at healthy diet and regular exercise and adequate sleep. Needs to keep working on diet and exercise with lifestyle changes for effective weight loss as well as control of DM, and control of BP and lipids. Can also help with back pain. The majority of the visit was spent counseling and/or coordinating care for the patient. Ipov-hn-fpte time was at least 25 minutes. Tutu Espinosa MD CNOV Observed: 04/12/2018 Status: COMPLETED Source: [place]OV[place] 8:20 AM [facility] REPOSITORY Office Visit (INTMWS) RAPHAEL DAVIS ([id number]) 1960 M Date Time Provider Department 04/12/18 8:20 AM TUTU ESPINOSA During your visit today, we recorded the following information about you: Pulse Respiration Blood pressure Weight 60/minute 16/minute 138/86 102.5 kg Tutu Espinosa MD 04/28/2018 11:39 PM Signed This note was created using Motionbox. Subjective Raphael Davis is a 58 year old male. Ongoing back pain issues. Last few months really getting to me Left side back pain that radiates down leg. Okay when wakes up then severe pain when gets up. Numbness and tingling in leg. No injury a few months ago. Some nights causes some pain--hard to get comfortable. Tried recliner. has topicals heating pads. thumber massager hot showers hot buckley bags, also cold bags Eases as keeps moving during the day By night, tightens up. Tightens up overnight Does Fay exercises from book from PT. Stretching does help to get going in AM but takes longer to get stretched out. Used to not last that long when firts got up--just 10 to 15 minutes but now hours. Back injections with Dr. Al had helped just first time then not better after next shots. Does not want pain meds--does not like how makes him feel. Either jittery or sick in his head. Prednisone helps. Staying active has helped. Not eating breakfast or lunch. Dinner and maybe popcorn for snacks. PAST MEDICAL HISTORY Diagnosis Date - Acute pancreatitis 03/28/2013 - Benign neoplasm of colon - Benign neoplasm of rectum and anal canal - Coronary atherosclerosis of unspecified type of vessel, [place] or graft stent placed 11/28/2007 - Family history of diabetes mellitus 10/31/2007 - Family history of ischemic heart disease 10/31/2007 - Heart attack (HCC) 2007 - Obesity, unspecified 10/31/2007 - GUERA (obstructive sleep apnea) - Other acute and subacute form of ischemic heart disease 09/2007 [facility] ER then trans to [facility] - Other and unspecified hyperlipidemia - Pancreatitis - Peptic ulcer, unspecified site, unspecified as acute or chronic, without mention of hemorrhage, perforation, or obstruction - Snoring - Tobacco use disorder 10/31/2007 Current Outpatient Prescriptions: ibuprofen (MOTRIN) 600 mg tablet Take 1 tablet by mouth every 6 hours as needed for Pain. Take with food and stay hydrated predniSONE (DELTASONE) 10 mg tablet Take 1-2 tablets by mouth once daily as needed. As directed sildenafil (VIAGRA) 50 mg tablet Take 1 tablet by mouth as needed. TAKE 30-60 MINUTES BEFORE SEXUAL INTERCOURSE NEEDED. lisinopril (ZESTRIL, PRINIVIL) 5 mg tablet Take 1 tablet by mouth once daily. ranitidine (ZANTAC) 150 mg tablet Take 1 tablet by mouth twice daily. atorvastatin (LIPITOR) 80 mg tablet Take 0.5 tablets by mouth once daily. fexofenadine (MARIELY) 180 mg tablet Take 1 tablet by mouth once daily as needed. (for allergies and congestion associated with vertigo) metoprolol succinate ER (TOPROL XL) 50 mg 24 hr tablet Take 0.5 tablets by mouth twice daily. nitroglycerin sublingual (NITROQUICK) 0.4 mg SL tablet Dissolve 1 tablet under the tongue every 5 minutes as needed for Chest Pain. IF NO PAIN RELIEF, CALL 911 aspirin, enteric coated (ECOTRIN LOW STRENGTH) 81 mg EC tablet Take 1 tablet by mouth once daily. No current facility-administered medications for this visit. Social History Marital status: Spouse name: Maribel Years of education: Number of children: 2 Occupational History Occupation Employer [employer]* Social History Main Topics Smoking status: Current Every Day Smoker Packs/day: 0.50 Years: 35.00 Types: Cigarettes Smokeless tobacco: Never Used Alcohol use: No Drug use: No Other Topics Concern Service No Blood Transfusions No Caffeine Concern Yes Comment:He is eliminating this currently Occupational Exposure No Comment:Disabled 2011 for health probs Hobby Hazards No Sleep Concern Yes Comment:Always, some concern about snoring Stress Concern Yes Weight Concern Yes Comment:Has gained since he is quitting smoking Special Diet Yes Comment:Watch red meat and fatty foods Back Care Yes Comment:Sometimes muscle spasms Exercise No Comment: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 Bike Helmet Not Asked Comment:Doesn't ride Seat Belt Yes Self-Exams No Review of Systems Cardiovascular: Negative. Musculoskeletal: Positive for back pain. Se HPI Neurological: Positive for numbness. See HPI Objective BP 138/86 (BP Site: Left Arm, BP Position: Sitting, BP Cuff Size: Regular Adult) Pulse 60 Resp 16 Wt 102.5 kg (226 lb) BMI 32.43 kg/m? Last 5 Encounter BP Readings: Date: BP: 04/12/2018 138/86 10/05/2017 130/82 09/10/2017 132/84 04/26/2017 122/80 01/05/2017 144/92[ (from Extended Vitals)[ Last 5 Encounter Wt Readings: Date: Wt: 04/12/2018 102.5 kg (226 lb) 10/05/2017 104.3 kg (230 lb) 09/10/2017 103.4 kg (228 lb) 04/26/2017 99.3 kg (219 lb) 01/05/2017 102 kg (224 lb 12.8 oz) Physical Exam Constitutional: He is oriented to person, place, and time. He appears well-developed and well-nourished. HENT: Head: Normocephalic and atraumatic. Eyes: Conjunctivae and EOM are normal. Cardiovascular: Normal rate and regular rhythm. Pulmonary/Chest: Effort normal and breath sounds normal. Abdominal: Soft. Bowel sounds are normal. Neurological: He is alert and oriented to person, place, and time. Skin: Skin is warm. Psychiatric: He has a normal mood and affect. His behavior is normal. Component Latest Ref Rng AND Units 08/14/2016 03/22/2017 08/19/2017 04/04/2018 WBC 3.70 - 11.00 k/uL 10.21 9.90 9.15 RBC 4.20 - 6.00 m/uL 5.21 5.20 5.23 Hemoglobin 13.0 - 17.0 g/dL 15.9 15.8 16.0 Hematocrit 39.0 - 51.0 % 50.6 48.8 50.2 MCV 80.0 - 100.0 fL 97.1 93.8 96.0 MCH 26.0 - 34.0 pG 30.5 30.4 30.6 MCHC 30.5 - 36.0 g/dL 31.4 32.4 31.9 RDW-CV 11.5 - 15.0 % 14.3 13.4 13.9 Platelet Count 150 - 400 k/uL 168 161 176 MPV 9.0 - 12.7 fL 12.8 (H) 12.3 12.2 Neut% % 70.7 Abs Neut (ANC) 1.45 - 7.50 k/uL 7.22 Lymph% % 23.6 Abs Lymph 1.00 - 4.00 k/uL 2.41 [place]% % 4.8 Abs [place] 0.00 - 0.86 k/uL 0.49 Eosin% % 0.4 Abs Eosin 0.00 - 0.45 k/uL 0.04 Baso% % 0.5 Abs Baso 0.00 - 0.10 k/uL 0.05 Nucleated Reds 0 /100 WBC 0.0 Absolute nRBC <0.01 k/uL 0.00 <0.01 <0.01 Diff Type Auto Diff Protein, Total 6.3 - 8.0 g/dL 7.1 6.6 6.7 7.0 Albumin 3.9 - 4.9 g/dL 4.6 4.4 4.3 4.5 Calcium 8.5 - 10.2 mg/dL 9.3 9.0 9.1 9.4 Bilirubin, Total 0.2 - 1.3 mg/dL 0.6 0.6 0.6 0.8 Alkaline Phosphatase 38 - 113 U/L 71 65 79 76 AST 14 - 40 U/L 18 20 18 19 Glucose 74 - 99 mg/dL 115 (H) 105 (H) 105 (H) 109 (H) BUN 9 - 24 mg/dL 25 (H) 19 20 23 Creatinine 0.73 - 1.22 mg/dL 1.10 1.10 1.18 1.14 Sodium 136 - 144 mmol/L 144 144 143 142 Potassium 3.7 - 5.1 mmol/L 3.9 4.0 3.9 4.0 Chloride 97 - 105 mmol/L 105 107 (H) 103 104 CO2 22 - 30 mmol/L 23 26 25 25 Anion Gap 9 - 18 mmol/L 16 11 15 13 ALT 10 - 54 U/L 18 18 20 15 eGFR- >60 >60 >60 >60 eGFR-All Other Races . >60 >60 >60 >60 Triglyceride <150 mg/dL 56 62 71 Cholesterol, Total <200 mg/dL 144 119 142 HDL Cholesterol >39 mg/dL 48 41 (L) 39 (L) VLDL Cholesterol <30 mg/dL 11 12 14 LDL Cholesterol <100 mg/dL 85 66 89 Fasting Time hrs 16 12 12 TC:HDL Ratio <5.10 3.00 2.90 3.64 LDL:HDL Ratio <2.54 1.77 1.61 2.28 Non HDL Cholesterol <130 mg/dL 96 78 (L) 103 Hemoglobin A1C 4.3 - 5.6 % 5.8 (H) 5.8 (H) 6.0 (H) 5.8 (H) Estimated Average Glucose mg/dL 120 120 126 120 CK 51 - 298 U/L 97 78 TSH 0.400 - 5.500 uU/mL 1.030 Assessment and Plan Encounter Diagnosis ICD-10-CM 1. Chronic left-sided low back pain with left-sided sciatica M54.42 cyclobenzaprine (FLEXERIL) 10 mg tablet G89.29 2. Lumbar radiculopathy, chronic M54.16 cyclobenzaprine (FLEXERIL) 10 mg tablet 3. Spinal stenosis, lumbar region, without neurogenic claudication M48.061 predniSONE (DELTASONE) 10 mg tablet cyclobenzaprine (FLEXERIL) 10 mg tablet 4. Coronary artery disease involving [place] coronary artery of [place] heart without angina pectoris I25.10 nitroglycerin sublingual (NITROQUICK) 0.4 mg SL tablet 5. Pure hypercholesterolemia E78.00 6. Non morbid obesity due to excess calories E66.09 7. IFG (impaired fasting glucose) R73.01 HGB A1C COMP METABOLIC PANEL 8. Encounter for long-term current use of medication Z79.899 COMP METABOLIC PANEL CBC 9. Tobacco use disorder F17.200 Will continue present management for back. As noted in HPI, does not want to take any pain meds like narcotics. Staying helps his back pain more than resting. Will let me know when needs referred to PT or pain management. Work on quitting smoking. Stable from cardiac standpoint but discussed that smoking is still the main risk for AR or stroke. Above issues addressed with patient. Patient involved in shared decision making for management of medical issues. History and medications reviewed. Epic updated as needed Refills taken care of and meds adjusted as indicated after reviewed history, exam and labs. Health Maintenance reviewed. Updated record and/or ordered tests as recorded. Encouraged on efforts at healthy diet and regular exercise and adequate sleep. Needs to keep working on diet and exercise with lifestyle changes for effective weight loss as well as control of DM, and control of BP and lipids. Can also help with back pain. The majority of the visit was spent counseling and/or coordinating care for the patient. Curs-gd-qbwm time was at least 25 minutes. Tutu Espinosa MD Referring Provider: MARITZA HUGHES ([facility]) [[id number]] Allergies As of Date: 04/12/2018 Noted Allergy Reaction BEES 03/01/2008 10 - Anaphylaxis PENICILLINS 06/04/2006 11 - Vomiting Comments: Can take amoxil SHELLFISH 10/31/2007 9 - Itching Comments: given benadryl with heart cath dye - tolerated SIMVASTATIN 12/10/2015 14 - Other: See Comments Comments: CK Elevations and body aches SULFA (SULFONAMIDE ANTIBIOTICS) 10/31/2007 Comments: Doesn't know Date Reviewed: 04/12/2018 Reviewed by: Annetta Ghosh LPN - Fully Assessed Reason for Visit: F/U 6 Month [444] Primary Visit Diagnosis:Chronic left-sided low back pain with left-sided sciatica [M54.42, G89.29] Other Visit Diagnoses:Lumbar radiculopathy, chronic [M54.16] Spinal stenosis, lumbar region, without neurogenic claudication [M48.061] Coronary artery disease involving [place] coronary artery of [place] heart without angina pectoris [I25.10] Pure hypercholesterolemia [E78.00] Non morbid obesity due to excess calories [E66.09] IFG (impaired fasting glucose) [R73.01] Encounter for long-term current use of medication [Z79.899] Tobacco use disorder [F17.200] Order(s):predniSONE (DELTASONE) 10 mg tabletTake 1-2 tablets by mouth once daily as needed. As directedDisp: 20 tabletRfl: 1 nitroglycerin sublingual (NITROQUICK) 0.4 mg SL tabletDissolve 1 tablet under the tongue every 5 minutes as needed for Chest Pain. IF NO PAIN RELIEF, CALL 911Disp: 1 Bottle of 25Rfl: 2 cyclobenzaprine (FLEXERIL) 10 mg tabletTake 0.5-1 tablets by mouth three times daily as needed for Muscle Spasm.Disp: 30 tabletRfl: 1 HGB A1C [IFRLE2U] Order #: [id number] FUTURE COMP METABOLIC PANEL [SQCMP] Order #: [id number] FUTURE CBC [SQCBC] Order #: [id number] FUTURE Prescriptions as of 04/12/2018 Sig: ASPIRIN 81 MG TABLET,DELAYED * Take 1 tablet by mouth once d* ATORVASTATIN 80 MG TABLET Take 0.5 tablets by mouth onc* FEXOFENADINE 180 MG TABLET Take 1 tablet by mouth once d* IBUPROFEN 600 MG TABLET Take 1 tablet by mouth every * LISINOPRIL 5 MG TABLET Take 1 tablet by mouth once d* METOPROLOL SUCCINATE ER 50 MG* Take 0.5 tablets by mouth twi* PREDNISONE 10 MG TABLET Take 1-2 tablets by mouth onc* RANITIDINE 150 MG TABLET Take 1 tablet by mouth twice * SILDENAFIL 50 MG TABLET Take 1 tablet by mouth as nee* CYCLOBENZAPRINE 10 MG TABLET Take 0.5-1 tablets by mouth t* NITROGLYCERIN 0.4 MG SUBLINGU* Dissolve 1 tablet under the t* Problem List As Of Date 04/12/2018 Noted Resolved Coronary atherosclerosis [I25.10] Other acute and subacute form of ischemic heart*INVALID FOR*11/01/2016 More... Family history of diabetes mellitus [Z83.3] INVALID FOR*05/02/2015 Family history of ischemic heart disease [Z82.4*INVALID FOR*05/02/2015 TOBACCO USE DISORDER [F17.200] INVALID FOR* More... More... Hyperlipidemia [E78.5] INVALID FOR* Tear of medial cartilage or meniscus of knee, c*INVALID FOR*05/02/2015 Pain in Joint, Shoulder Region [M25.519] INVALID FOR* Other affections of shoulder region, not elsewh*INVALID FOR*05/02/2015 Biceps tendonitis [M75.20] INVALID FOR*05/02/2015 Spinal stenosis, lumbar region, without neuroge*INVALID FOR* More... Capsulitis [M77.9] INVALID FOR*05/02/2015 GUERA (obstructive sleep apnea) [G47.33] More... 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] INVALID FOR* Actinic Keratoses: Premalignant AK's [L57.0] INVALID FOR* Other Seborrheic Keratoses [L82.1] INVALID FOR* Excoriation [T14.8XXA] INVALID FOR*05/02/2015 Solar Lentigines [L81.4] INVALID FOR* Ephelides [L81.2] INVALID FOR* Actinic skin damage [L57.8] INVALID FOR*05/02/2015 Chronic back pain [M54.9, G89.29] INVALID FOR* Lumbar spondylosis [M47.816] INVALID FOR* Ulnar neuropathy of left upper extremity [G56.2*INVALID FOR* Neoplasm of Uncertain Behavior (NUB) of skin: R*INVALID FOR* Scar condition and fibrosis of skin [L90.5] INVALID FOR*05/02/2015 Hypertrophic scar [L91.0] INVALID FOR* Keloid scar [L91.0] INVALID FOR* Personal history of other malignant neoplasm of*INVALID FOR*03/18/2013 Surgical Scars [L90.5] INVALID FOR*05/02/2015 Postinflammatory skin changes [R23.4] INVALID FOR*05/02/2015 H/O BCC Skin Cancer left confucianist: S/P Moh's Surg*INVALID FOR*05/02/2015 Acute pancreatitis [K85.90] INVALID FOR*04/26/2017 BPH (benign prostatic hyperplasia) [N40.0] INVALID FOR* Kidney stone [N20.0] INVALID FOR* Obesity, unspecified [E66.9] INVALID FOR*03/13/2015 Non morbid obesity due to excess calories [E66.*INVALID FOR* IFG (impaired fasting glucose) [R73.01] INVALID FOR* Prescriptions ordered this encounter Disp Refills Start End PREDNISONE 10 MG TABLET 20 t* 1 04/12/2018 Route: ORAL Sig: Take 1-2 tablets by mouth once daily as needed. As directed NITROGLYCERIN 0.4 MG SUBLINGUAL TABL* 1 Adeel* 2 04/12/2018 Route: SUBLINGUAL Sig: Dissolve 1 tablet under the tongue every 5 minutes as needed for Chest Pain. IF NO PAIN RELIEF, CALL 911 CYCLOBENZAPRINE 10 MG TABLET 30 t* 1 04/12/2018 Route: ORAL Sig: Take 0.5-1 tablets by mouth three times daily as needed for Muscle Spasm. Medications Discontinued During This Encounter predniSONE (DELTASONE) 10 mg tablet 20 t* 1 02/16/2018 04/12/2018 Route: ORAL Sig: Take 1-2 tablets by mouth once daily as needed. As directed Disc: Reason for discontinue is not on file. nitroglycerin sublingual (NITROQUICK* 1 Adeel* 2 10/14/2016 04/12/2018 Route: SUBLINGUAL Sig: Dissolve 1 tablet under the tongue every 5 minutes as needed for Chest Pain. IF NO PAIN RELIEF, CALL 911 Disc: Reason for discontinue is not on file. Disposition: Return in about 6 months (around 10/10/2018) for 6 months follow up. Follow-up and Disposition History Recorded Encounter Status:Closed by TUTU ESPINOSA MD [facility] 04/28/18 [facility] Observed: 04/08/2018 Status: COMPLETED Source: [place] 12:00 AM [facility] REPOSITORY Telephone (INTMWS) RAPHAEL DAVIS ([id number]) 1960 M Date Time Provider Department 04/08/18 TUTU ESPINOSA INTMWS During your visit today, we recorded the following information about you: Jos Gandhi LPN 04/08/2018 11:45 AM Signed calls in. States that office needs to contact [employer] so they will send out his supply of Viagra. Please notify them once this arrives. Makeda Perez LPN 04/11/2018 4:13 PM Signed Need to call [phone]-[employer] [facility]. Pt's ID number last year was [id number]. Called the automated system and unable to complete electronically.Hold time is over 20 minutes. DIOGENES Nick 04/12/2018 10:58 AM Signed Natalie called [employer] [facility] and rep states their automated refill line is not working. Rep placed viagra refill. Order confirmation # [id number]. Patient application will May 16, 2018. New application needs to be completed now. Medication should arrive in 7-10 business days. Sw will let spouse know that new application is needed. Alanna Marinellifer, HAND SPRING REPAIRER-DRAWING PRESS OPERATOR 04/12/2018 2:32 PM Signed Natalie spoke with Maribel and she has new [employer] application and will work on it and bring it in for patient Viagra. Allergies As of Date: 04/08/2018 Noted Allergy Reaction BEES 03/01/2008 10 - Anaphylaxis PENICILLINS 06/04/2006 11 - Vomiting Comments: Can take amoxil SHELLFISH 10/31/2007 9 - Itching Comments: given benadryl with heart cath dye - tolerated SIMVASTATIN 12/10/2015 14 - Other: See Comments Comments: CK Elevations and body aches SULFA (SULFONAMIDE ANTIBIOTICS) 10/31/2007 Comments: Doesn't know Date Reviewed: 10/05/2017 Reviewed by: Myrna Mello Health Plan Advisor - Fully Assessed Reason for Visit: Medication Request [138] Prescriptions as of 04/08/2018 Sig: IBUPROFEN 600 MG TABLET Take 1 tablet by mouth every * X PREDNISONE 10 MG TABLET Take 1-2 tablets by mouth onc* SILDENAFIL 50 MG TABLET Take 1 tablet by mouth as nee* LISINOPRIL 5 MG TABLET Take 1 tablet by mouth once d* RANITIDINE 150 MG TABLET Take 1 tablet by mouth twice * ATORVASTATIN 80 MG TABLET Take 0.5 tablets by mouth onc* FEXOFENADINE 180 MG TABLET Take 1 tablet by mouth once d* METOPROLOL SUCCINATE ER 50 MG* Take 0.5 tablets by mouth twi* X NITROGLYCERIN 0.4 MG SUBLINGU* Dissolve 1 tablet under the t* ASPIRIN 81 MG TABLET,DELAYED * Take 1 tablet by mouth once d* Problem List As Of Date 04/08/2018 Noted Resolved Coronary atherosclerosis [I25.10] Other acute and subacute form of ischemic heart*INVALID FOR*11/01/2016 More... Family history of diabetes mellitus [Z83.3] INVALID FOR*05/02/2015 Family history of ischemic heart disease [Z82.4*INVALID FOR*05/02/2015 TOBACCO USE DISORDER [F17.200] INVALID FOR* More... More... Hyperlipidemia [E78.5] INVALID FOR* Tear of medial cartilage or meniscus of knee, c*INVALID FOR*05/02/2015 Pain in Joint, Shoulder Region [M25.519] INVALID FOR* Other affections of shoulder region, not elsewh*INVALID FOR*05/02/2015 Biceps tendonitis [M75.20] INVALID FOR*05/02/2015 Spinal stenosis, lumbar region, without neuroge*INVALID FOR* More... Capsulitis [M77.9] INVALID FOR*05/02/2015 GUERA (obstructive sleep apnea) [G47.33] More... 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] INVALID FOR* Actinic Keratoses: Premalignant AK's [L57.0] INVALID FOR* Other Seborrheic Keratoses [L82.1] INVALID FOR* Excoriation [T14.8XXA] INVALID FOR*05/02/2015 Solar Lentigines [L81.4] INVALID FOR* Ephelides [L81.2] INVALID FOR* Actinic skin damage [L57.8] INVALID FOR*05/02/2015 Chronic back pain [M54.9, G89.29] INVALID FOR* Lumbar spondylosis [M47.816] INVALID FOR* Ulnar neuropathy of left upper extremity [G56.2*INVALID FOR* Neoplasm of Uncertain Behavior (NUB) of skin: R*INVALID FOR* Scar condition and fibrosis of skin [L90.5] INVALID FOR*05/02/2015 Hypertrophic scar [L91.0] INVALID FOR* Keloid scar [L91.0] INVALID FOR* Personal history of other malignant neoplasm of*INVALID FOR*03/18/2013 Surgical Scars [L90.5] INVALID FOR*05/02/2015 Postinflammatory skin changes [R23.4] INVALID FOR*05/02/2015 H/O BCC Skin Cancer left confucianist: S/P Moh's Surg*INVALID FOR*05/02/2015 Acute pancreatitis [K85.90] INVALID FOR*04/26/2017 BPH (benign prostatic hyperplasia) [N40.0] INVALID FOR* Kidney stone [N20.0] INVALID FOR* Obesity, unspecified [E66.9] INVALID FOR*03/13/2015 Non morbid obesity due to excess calories [E66.*INVALID FOR* Encounter Status:Closed by MAKEDA PEREZ LPN on 04/12/18 CBC Collected: 04/04/2018 Status: F Source: [place] 9:28 AM [facility] REPOSITORY TYPE CODE TESTS RESULT OUT OF REFERENCE UNITS RANGE LAB WBC 3.70-11.00 k/uL WBC 9.15 LAB RBC 4.20-6.00 m/uL RBC 5.23 LAB HGB 13.0-17.0 g/dL Hemoglobin 16.0 LAB HCT 39.0-51.0 % Hematocrit 50.2 LAB MCV 80.0-100.0 fL MCV 96.0 LAB MCH 26.0-34.0 pG MCH 30.6 LAB MCHC 30.5-36.0 g/dL MCHC 31.9 LAB RDWCV 11.5-15.0 % RDW-CV 13.9 LAB PLTCT 150-400 k/uL Platelet Count 176 LAB MPV 9.0-12.7 fL MPV 12.2 LAB ABSNUC <0.01 k/uL Absolute nRBC <0.01 Performed By: #### CBC, CMP, LIPB, HBA1C #### [facility] [address] [place] [address] COMP METABOLIC PANEL Collected: 04/04/2018 Status: F Source: PROV[place] 9:28 AM [facility] REPOSITORY TYPE CODE TESTS RESULT OUT OF REFERENCE UNITS RANGE LAB TP 6.3-8.0 g/dL Protein, Total 7.0 LAB ALB 3.9-4.9 g/dL Albumin 4.5 LAB CA 8.5-10.2 mg/dL Calcium, Total 9.4 LAB TBIL 0.2-1.3 mg/dL Bilirubin, Total 0.8 LAB ALKP 38-113 U/L Alkaline Phosphatase 76 LAB AST 14-40 U/L AST 19 LAB GLU 74-99 mg/dL Glucose High 109 Result Comment: The [place] Diabetes Association (ADA) provides guidance for cutoff values for fasting glucose and random glucose. The ADA defines fasting as no caloric intake for at least 8 hours. Fas ting plasma glucose results between 100 to 125 mg/dL indicate increased risk for diabetes (prediabetes). Fasting plasma glucose results greater than or equal to 126 mg/dL meet the criteria for diagnosis of diabetes. In the absence of unequivocal hyperglycemia, results should be confirmed by repeat testing. In a patient with classic symptoms of hyperglycemia or hyperglycemic crisis, random plasma glucose results greater than or equal to 200 mg/dL meet the criteria for diagnosis of diabetes. Reference: Standards of Medical Care in Diabetes 2016, [place] [employer] Association. Diabetes Care. 2016.39(Suppl 1). LAB BUN 9-24 mg/dL BUN 23 LAB CRET 0.73-1.22 mg/dL Creatinine 1.14 LAB NA 136-144 mmol/L Sodium 142 LAB K 3.7-5.1 mmol/L Potassium 4.0 LAB CL 97-105 mmol/L Chloride 104 LAB CO2 22-30 mmol/L CO2 25 LAB AGAP 9-18 mmol/L Anion Gap 13 LAB ALT 10-54 U/L ALT 15 LAB GFRAA eGFR- Amer. >60 LAB GFRNAA . eGFR-All Other Races >60 Result Comment: eGFR (Estimated GFR) Units of measure: mL/min/1.73 meters squared eGFR is derived from the reexpressed MDRD Study equation using the following parameters: serum creatinine, age, gender and race. The creatinine assay has been calibrated to be traceable to IDMS. An eGFR <60 mL/min/1.73m2 for >3 months is consistent with chronic kidney disease. Refer to KDOQI guidelines for clinical interpretation. In patients with unstable renal function, e.g. those with acute kidney injury, the eGFR may not accurately reflect actual GFR. Performed By: #### CBC, CMP, LIPB, HBA1C #### [facility] [address] [place] [id number] LIPID PANEL, BASIC Collected: 04/04/2018 Status: F Source: PROVO 9:28 AM [facility] REPOSITORY TYPE CODE TESTS RESULT OUT OF REFERENCE UNITS RANGE LAB CHOL <200 mg/dL Cholesterol 142 Result Comment: <200 mg/dL, Desirable 200-239 mg/dL, Borderline high >239 mg/dL, High LAB TRIGLY <150 mg/dL Triglyceride 71 Result Comment: <150 mg/dL, Normal 150-199 mg/dL, Borderline high 200-499 mg/dL, High >499 mg/dL, Very high LAB HDL >39 mg/dL HDL-Cholesterol Low 39 Result Comment: 40-59 mg/dL, Acceptable >59 mg/dL, High: Negative risk factor for coronary heart disease <40 mg/dL, Low: Positive risk factor for coronary heart disease LAB LDL <100 mg/dL LDL-Cholesterol 89 Result Comment: <100 mg/dL, Optimal 100-129 mg/dL, Near optimal/above optimal 130-159 mg/dL, Borderline high 160-189 mg/dL, High >189 mg/dL, Very high Secondary prevention optimal LDL Cholesterol levels are recommended to be < 70 mg/dL LAB NONHDL <130 mg/dL Non HDL Cholesterol 103 Result Comment: <130 mg/dL, Optimal 130-159 mg/dL, Near optimal/above optimal 160-189 mg/dL, Borderline high 190-219 mg/dL, High >219 mg/dL, Very high Secondary prevention optimal non HDL Cholesterol levels are recommended to be < 100 mg/dL LAB FT hrs Fasting Time 12 LAB VLDL <30 mg/dL VLDL Cholesterol 14 LAB TCHDL <5.10 TC:HDL Ratio 3.64 LAB LDLHDL <2.54 LDL:HDL Ratio 2.28 Result Comment: Reference: 1. National Cholesterol Education Program ATP III Guideline At-A-Glance Quick Desk Reference: National Heart, Lung, and Blood [place]. National Institutes of Health. 2001: NIH Publication No. 01-3305. 2. An International Atherosclerosis Society position paper: global recommendations for the management of dyslipidemia: executive summary, Atherosclerosis. 2014: 232(2):410-413. Performed By: #### CBC, CMP, LIPB, HBA1C #### [facility] [address] [place], [place] [address] HEMOGLOBIN A1C Collected: 04/04/2018 Status: F Source: PROVO 9:28 AM [facility] TYPE CODE TESTS RESULT OUT OF REFERENCE UNITS RANGE LAB HGBA1C 4.3-5.6 % High Hemoglobin A1c 5.8 Result Comment: [place] Diabetes Association guidelines indicate that patients with HgbA1c in the range 5.7-6.4% are at increased risk for development of diabetes, and intervention by lifestyle modification may be beneficial. HgbA1c greater or equal to 6.5% is considered diagnostic of diabetes. LAB HBA0 mg/dL Est. Average Glucose 120 Result Comment: eAG: (Estimated average glucose) is a calculated value from HgbA1c and is accounts receivable representative of the average blood glucose level in the last 2-3 month period. Performed By: #### CBC, CMP, LIPB, HBA1C #### [facility] [address] [place], [place] [address] CNOV Observed: 10/05/2017 Status: COMPLETED Source: PROVO 9:00 AM [facility] REPOSITORY Office Visit (INTMWS) RAPHAEL DAVIS ([id number]) 1960 M Date Time Provider Department 10/05/17 9:00 AM TUTU ESPINOSA INTMWS During your visit today, we recorded the following information about you: Pulse Respiration Blood pressure Weight 80/minute 16/minute 130/82 104.3 kg Tutu Espinosa MD 10/17/2017 11:50 PM Signed Patient presents with: Recheck SUBJECTIVE: Raphael A Shawanda is a 57 year old year old gentleman here today for 6 month follow up appointment for review of medical conditions. Discussed that lightheadedness and dizziness and ringing and stuffiness from allergies. Mariely as needed with high pollen counts. This has helped. Not getting the vertigo like was. Had started to bother him a couple months ago. Noted that was down to 215 pounds then during this winter, ate more. Viagra through company still effective. No adverse effects noted. Recurrent back strain issues and symptoms of lumbar stenosis. Walking helps usually, but can do too much sometimes. Bending to weed yesterday--back pain worse after that. Some sciatica too. PAST MEDICAL HISTORY Diagnosis Date - Acute pancreatitis 03/28/2013 - Benign neoplasm of colon - Benign neoplasm of rectum and anal canal - Coronary atherosclerosis of unspecified type of vessel, [place] or graft stent placed 11/28/2007 - Family history of diabetes mellitus 10/31/2007 - Family history of ischemic heart disease 10/31/2007 - Heart attack (HCC) 2007 - Obesity, unspecified 10/31/2007 - GUERA (obstructive sleep apnea) - Other acute and subacute form of ischemic heart disease 09/2007 [facility] ER then trans to [facility] - Other and unspecified hyperlipidemia - Pancreatitis - Peptic ulcer, unspecified site, unspecified as acute or chronic, without mention of hemorrhage, perforation, or obstruction - Snoring - Tobacco use disorder 10/31/2007 Current Outpatient Prescriptions: lisinopril (ZESTRIL, PRINIVIL) 5 mg tablet Take 1 tablet by mouth once daily. metoprolol succinate ER (TOPROL XL) 50 mg 24 hr tablet Take 0.5 tablets by mouth twice daily. sildenafil (VIAGRA) 50 mg tablet Take 1 tablet by mouth as needed. TAKE 30-60 MINUTES BEFORE SEXUAL INTERCOURSE NEEDED. atorvastatin (LIPITOR) 80 mg tablet Take 0.5 tablets by mouth once daily. predniSONE (DELTASONE) 10 mg tablet Take 1-2 tablets by mouth once daily as needed. As directed ranitidine (ZANTAC) 150 mg tablet Take 1 tablet by mouth twice daily. nitroglycerin sublingual (NITROQUICK) 0.4 mg SL tablet Dissolve 1 tablet under the tongue every 5 minutes as needed for Chest Pain. IF NO PAIN RELIEF, CALL 911 aspirin, enteric coated (ECOTRIN LOW STRENGTH) 81 mg EC tablet Take 1 tablet by mouth once daily. No current facility-administered medications for this visit. OBJECTIVE: BP 130/82 Pulse 80 Resp 16 Wt 104.3 kg (230 lb) BMI 33.00 kg/m? Patient is alert, oriented times 3, no apparent distress, affect is bright, reactive. Last 5 Encounter BP Readings: Date: BP: 10/05/2017 130/82 09/10/2017 132/84 04/26/2017 122/80 01/05/2017 144/92[ (from Extended Vitals)[ 12/14/2016 128/72 Last 10 Encounter Wt Readings: Date: Wt: 10/05/2017 104.3 kg (230 lb) 09/10/2017 103.4 kg (228 lb) 04/26/2017 99.3 kg (219 lb) 01/05/2017 102 kg (224 lb 12.8 oz) 12/14/2016 102 kg (224 lb 12.8 oz) 10/14/2016 103.4 kg (228 lb) 08/14/2016 101.1 kg (222 lb 12.8 oz) 08/14/2016 100.7 kg (222 lb 1.3 oz) 04/14/2016 98.9 kg (218 lb) 02/04/2016 101.6 kg (224 lb) Heart: Regular rate, rhythm, no murmurs, gallops, rubs. Lungs: Clear to auscultation, bilaterally, breathing non labored. Ext: No cyanosis, clubbing, or edema. Back: left LS spine area with tight muscle spasm with tenderness. Component Latest Ref Rng AND Units 08/14/2016 03/22/2017 08/19/2017 WBC 3.70 - 11.00 k/uL 10.21 9.90 RBC 4.20 - 6.00 m/uL 5.21 5.20 Hemoglobin 13.0 - 17.0 g/dL 15.9 15.8 Hematocrit 39.0 - 51.0 % 50.6 48.8 MCV 80.0 - 100.0 fL 97.1 93.8 MCH 26.0 - 34.0 pG 30.5 30.4 MCHC 30.5 - 36.0 g/dL 31.4 32.4 RDW-CV 11.5 - 15.0 % 14.3 13.4 Platelet Count 150 - 400 k/uL 168 161 MPV 9.0 - 12.7 fL 12.8 (H) 12.3 Neut% % 70.7 Abs Neut (ANC) 1.45 - 7.50 k/uL 7.22 Lymph% % 23.6 Abs Lymph 1.00 - 4.00 k/uL 2.41 [place]% % 4.8 Abs [place] 0.00 - 0.86 k/uL 0.49 Eosin% % 0.4 Abs Eosin 0.00 - 0.45 k/uL 0.04 Baso% % 0.5 Abs Baso 0.00 - 0.10 k/uL 0.05 Nucleated Reds 0 /100 WBC 0.0 Absolute nRBC <0.01 k/uL 0.00 <0.01 Diff Type Auto Diff Protein, Total 6.3 - 8.0 g/dL 7.1 6.6 6.7 Albumin 3.9 - 4.9 g/dL 4.6 4.4 4.3 Calcium 8.5 - 10.2 mg/dL 9.3 9.0 9.1 Bilirubin, Total 0.2 - 1.3 mg/dL 0.6 0.6 0.6 Alkaline Phosphatase 36 - 108 U/L 71 65 79 AST 14 - 40 U/L 18 20 18 Glucose 74 - 99 mg/dL 115 (H) 105 (H) 105 (H) BUN 9 - 24 mg/dL 25 (H) 19 20 Creatinine 0.73 - 1.22 mg/dL 1.10 1.10 1.18 Sodium 136 - 144 mmol/L 144 144 143 Potassium 3.7 - 5.1 mmol/L 3.9 4.0 3.9 Chloride 97 - 105 mmol/L 105 107 (H) 103 CO2 22 - 30 mmol/L 23 26 25 Anion Gap 9 - 18 mmol/L 16 11 15 ALT 10 - 54 U/L 18 18 20 eGFR- >60 >60 >60 eGFR-All Other Races . >60 >60 >60 Triglyceride 30 - 149 mg/dL 56 62 Cholesterol, Total 100 - 199 mg/dL 144 119 HDL Cholesterol >45 mg/dL 48 41 (L) VLDL Cholesterol 6 - 40 mg/dL 11 12 LDL Cholesterol 60 - 129 mg/dL 85 66 Fasting Time hrs 16 12 TC:HDL Ratio 1.00 - 5.00 3.00 2.90 LDL:HDL Ratio 0.50 - 3.55 1.77 1.61 Non HDL Cholesterol 90 - 159 mg/dL 96 78 (L) Hemoglobin A1C 4.3 - 5.6 % 5.8 (H) 5.8 (H) 6.0 (H) Estimated Average Glucose mg/dL 120 120 126 CK 51 - 298 U/L 97 78 TSH 0.400 - 5.500 uU/mL 1.030 ASSESSMENT AND PLAN: Encounter Diagnosis ICD-10-CM 1. Allergic rhinitis due to other allergic trigger, unspecified seasonality J30.89 2. Spinal stenosis, lumbar region, without neurogenic claudication M48.061 predniSONE (DELTASONE) 10 mg tablet 3. Pure hypercholesterolemia E78.00 atorvastatin (LIPITOR) 80 mg tablet LIPID PANEL BASIC 4. Lumbar spondylosis M47.816 5. Non morbid obesity due to excess calories E66.09 6. Erectile dysfunction, unspecified erectile dysfunction type N52.9 7. Encounter for long-term current use of medication Z79.899 COMP METABOLIC PANEL CBC 8. IFG (impaired fasting glucose) R73.01 COMP METABOLIC PANEL HGB A1C 9. Dizziness R42 10. Ringing in the ear, bilateral H93.13 Will try a back brace to prevent bending when working in yard, etc. Continue present management. Mark's help. Continue Mariely. Viagra prn still effective Above issues addressed with patient. Patient involved in shared decision making for management of her medical issues. History and medications reviewed. Epic updated as needed Refills taken care of and meds adjusted as indicated after reviewed history, exam and labs. Health Maintenance reviewed. Updated record and/or ordered tests as recorded. Encouraged on efforts at healthy diet and regular exercise and adequate sleep. Needs to keep working on diet and exercise with lifestyle changes for effective weight loss and prevention of DM,and control of lipids and BP. Viagra as noted in HPI. Continue present management. Refer to ENT as indicated if not able to control symptoms with current management (including Mariely) The majority of the visit was spent counseling and/or coordinating care for the patient. Ygtq-up-ehrj time was at least 25 minutes. Tutu Espinosa MD Referring Provider: MARITZA HUGHES (LEASING MACHINE TENDER)(HIST) [[id number]] Allergies As of Date: 10/05/2017 Noted Allergy Reaction BEES 03/01/2008 10 - Anaphylaxis PENICILLINS 06/04/2006 11 - Vomiting Comments: Can take amoxil SHELLFISH 10/31/2007 9 - Itching Comments: given benadryl with heart cath dye - tolerated SIMVASTATIN 12/10/2015 14 - Other: See Comments Comments: CK Elevations and body aches SULFA (SULFONAMIDE ANTIBIOTICS) 10/31/2007 Comments: Doesn't know Date Reviewed: 10/05/2017 Reviewed by: Myrna Mello Health Plan Advisor - Fully Assessed Reason for Visit: Recheck [92] Primary Visit Diagnosis:Allergic rhinitis due to other allergic trigger, unspecified seasonality [J30.89] Other Visit Diagnoses:Spinal stenosis, lumbar region, without neurogenic claudication [M48.061] Pure hypercholesterolemia [E78.00] Lumbar spondylosis [M47.816] Non morbid obesity due to excess calories [E66.09] Erectile dysfunction, unspecified erectile dysfunction type [N52.9] Encounter for long-term current use of medication [Z79.899] IFG (impaired fasting glucose) [R73.01] Dizziness [R42] Ringing in the ear, bilateral [H93.13] Order(s):lisinopril (ZESTRIL, PRINIVIL) 5 mg tabletTake 1 tablet by mouth once daily.Disp: 90 tabletRfl: 3 predniSONE (DELTASONE) 10 mg tabletTake 1-2 tablets by mouth once daily as needed. As directedDisp: 20 tabletRfl: 1 ranitidine (ZANTAC) 150 mg tabletTake 1 tablet by mouth twice daily.Disp: 180 tabletRfl: 3 atorvastatin (LIPITOR) 80 mg tabletTake 0.5 tablets by mouth once daily.Disp: 45 tabletRfl: 3 fexofenadine (MARIELY) 180 mg tabletTake 1 tablet by mouth once daily as needed. (for allergies and congestion associated with vertigo)Disp: Rfl: COMP METABOLIC PANEL [SQCMP] Order #: [id number] FUTURE CBC [SQCBC] Order #: [id number] FUTURE LIPID PANEL BASIC [SQLIPB] Order #: [id number] FUTURE HGB A1C [DQEPM7O] Order #: [id number] FUTURE Prescriptions as of 10/05/2017 Sig: LISINOPRIL 5 MG TABLET Take 1 tablet by mouth once d* PREDNISONE 10 MG TABLET Take 1-2 tablets by mouth onc* RANITIDINE 150 MG TABLET Take 1 tablet by mouth twice * ATORVASTATIN 80 MG TABLET Take 0.5 tablets by mouth onc* FEXOFENADINE 180 MG TABLET Take 1 tablet by mouth once d* METOPROLOL SUCCINATE ER 50 MG* Take 0.5 tablets by mouth twi* SILDENAFIL 50 MG TABLET Take 1 tablet by mouth as nee* NITROGLYCERIN 0.4 MG SUBLINGU* Dissolve 1 tablet under the t* ASPIRIN 81 MG TABLET,DELAYED * Take 1 tablet by mouth once d* Problem List As Of Date 10/05/2017 Noted Resolved Coronary atherosclerosis [I25.10] Other acute and subacute form of ischemic heart*INVALID FOR*11/01/2016 More... Family history of diabetes mellitus [Z83.3] INVALID FOR*05/02/2015 Family history of ischemic heart disease [Z82.4*INVALID FOR*05/02/2015 TOBACCO USE DISORDER [F17.200] INVALID FOR* More... More... Hyperlipidemia [E78.5] INVALID FOR* Tear of medial cartilage or meniscus of knee, c*INVALID FOR*05/02/2015 Pain in Joint, Shoulder Region [M25.519] INVALID FOR* Other affections of shoulder region, not elsewh*INVALID FOR*05/02/2015 Biceps tendonitis [M75.20] INVALID FOR*05/02/2015 Spinal stenosis, lumbar region, without neuroge*INVALID FOR* More... Capsulitis [M77.9] INVALID FOR*05/02/2015 GUERA (obstructive sleep apnea) [G47.33] More... 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] INVALID FOR* Actinic Keratoses: Premalignant AK's [L57.0] INVALID FOR* Other Seborrheic Keratoses [L82.1] INVALID FOR* Excoriation [T14.8XXA] INVALID FOR*05/02/2015 Solar Lentigines [L81.4] INVALID FOR* Ephelides [L81.2] INVALID FOR* Actinic skin damage [L57.8] INVALID FOR*05/02/2015 Chronic back pain [M54.9, G89.29] INVALID FOR* Lumbar spondylosis [M47.816] INVALID FOR* Ulnar neuropathy of left upper extremity [G56.2*INVALID FOR* Neoplasm of Uncertain Behavior (NUB) of skin: R*INVALID FOR* Scar condition and fibrosis of skin [L90.5] INVALID FOR*05/02/2015 Hypertrophic scar [L91.0] INVALID FOR* Keloid scar [L91.0] INVALID FOR* Personal history of other malignant neoplasm of*INVALID FOR*03/18/2013 Surgical Scars [L90.5] INVALID FOR*05/02/2015 Postinflammatory skin changes [R23.4] INVALID FOR*05/02/2015 H/O BCC Skin Cancer left confucianist: S/P Moh's Surg*INVALID FOR*05/02/2015 Acute pancreatitis [K85.90] INVALID FOR*04/26/2017 BPH (benign prostatic hyperplasia) [N40.0] INVALID FOR* Kidney stone [N20.0] INVALID FOR* Obesity, unspecified [E66.9] INVALID FOR*03/13/2015 Non morbid obesity due to excess calories [E66.*INVALID FOR* Prescriptions ordered this encounter Disp Refills Start End LISINOPRIL 5 MG TABLET 90 t* 3 10/05/2017 Route: ORAL Sig: Take 1 tablet by mouth once daily. PREDNISONE 10 MG TABLET 20 t* 1 10/05/2017 Route: ORAL Sig: Take 1-2 tablets by mouth once daily as needed. As directed RANITIDINE 150 MG TABLET 180 * 3 10/05/2017 Route: ORAL Sig: Take 1 tablet by mouth twice daily. ATORVASTATIN 80 MG TABLET 45 t* 3 10/05/2017 Route: ORAL Sig: Take 0.5 tablets by mouth once daily. FEXOFENADINE 180 MG TABLET 10/05/2017 Class: OTC Route: ORAL Sig: Take 1 tablet by mouth once daily as needed. (for allergies and congestion associated with vertigo) Medications Discontinued During This Encounter lisinopril (ZESTRIL, PRINIVIL) 5 mg * 30 t* 2 08/25/2017 10/05/2017 Route: ORAL Sig: Take 1 tablet by mouth once daily. Disc: Reason for discontinue is not on file. predniSONE (DELTASONE) 10 mg tablet 20 t* 0 04/26/2017 10/05/2017 Route: ORAL Sig: Take 1-2 tablets by mouth once daily as needed. As directed Disc: Reason for discontinue is not on file. ranitidine (ZANTAC) 150 mg tablet 60 t* 11 10/14/2016 10/05/2017 Route: ORAL Sig: Take 1 tablet by mouth twice daily. Disc: Reason for discontinue is not on file. atorvastatin (LIPITOR) 80 mg tablet 45 t* 3 04/26/2017 10/05/2017 Route: ORAL Sig: Take 0.5 tablets by mouth once daily. Disc: Reason for discontinue is not on file. Disposition: Return in about 6 months (around 04/07/2018) for 6 months follow up, With labs prior. Follow-up and Disposition History Recorded Encounter Status:Closed by TUTU ESPINOSA MD on 10/17/17 PROGRESS Observed: 10/05/2017 Status: COMPLETED Source: [place] 8:57 AM [facility] [place] REPOSIT[facility] HNO ID: [id number] Author: Tutu Espinosa Service: (none) Author Type: Physician Type: Progress Notes Filed: 10/17/2017 11:50 PM Note Text: Patient presents with: Recheck SUBJECTIVE: Raphael Davis is a 57 year old year old gentleman here today for 6 month follow up appointment for review of medical conditions. Discussed that lightheadedness and dizziness and ringing and stuffiness from allergies. Mariely as needed with high pollen counts. This has helped. Not getting the vertigo like was. Had started to bother him a couple months ago. Noted that was down to 215 pounds then during this winter, ate more. Viagra through company still effective. No adverse effects noted. Recurrent back strain issues and symptoms of lumbar stenosis. Walking helps usually, but can do too much sometimes. Bending to weed yesterday--back pain worse after that. Some sciatica too. PAST MEDICAL HISTORY Diagnosis Date - Acute pancreatitis 03/28/2013 - Benign neoplasm of colon - Benign neoplasm of rectum and anal canal - Coronary atherosclerosis of unspecified type of vessel, [place] or graft stent placed 11/28/2007 - Family history of diabetes mellitus 10/31/2007 - Family history of ischemic heart disease 10/31/2007 - Heart attack (HCC) 2007 - Obesity, unspecified 10/31/2007 - GUERA (obstructive sleep apnea) - Other acute and subacute form of ischemic heart disease 09/2007 [facility] ER then trans to [facility] - Other and unspecified hyperlipidemia - Pancreatitis - Peptic ulcer, unspecified site, unspecified as acute or chronic, without mention of hemorrhage, perforation, or obstruction - Snoring - Tobacco use disorder 10/31/2007 Current Outpatient Prescriptions: lisinopril (ZESTRIL, PRINIVIL) 5 mg tablet Take 1 tablet by mouth once daily. metoprolol succinate ER (TOPROL XL) 50 mg 24 hr tablet Take 0.5 tablets by mouth twice daily. sildenafil (VIAGRA) 50 mg tablet Take 1 tablet by mouth as needed. TAKE 30-60 MINUTES BEFORE SEXUAL INTERCOURSE NEEDED. atorvastatin (LIPITOR) 80 mg tablet Take 0.5 tablets by mouth once daily. predniSONE (DELTASONE) 10 mg tablet Take 1-2 tablets by mouth once daily as needed. As directed ranitidine (ZANTAC) 150 mg tablet Take 1 tablet by mouth twice daily. nitroglycerin sublingual (NITROQUICK) 0.4 mg SL tablet Dissolve 1 tablet under the tongue every 5 minutes as needed for Chest Pain. IF NO PAIN RELIEF, CALL 911 aspirin, enteric coated (ECOTRIN LOW STRENGTH) 81 mg EC tablet Take 1 tablet by mouth once daily. No current facility-administered medications for this visit. OBJECTIVE: BP 130/82 Pulse 80 Resp 16 Wt 104.3 kg (230 lb) BMI 33.00 kg/m? Patient is alert, oriented times 3, no apparent distress, affect is bright, reactive. Last 5 Encounter BP Readings: Date: BP: 10/05/2017 130/82 09/10/2017 132/84 04/26/2017 122/80 01/05/2017 144/92[ (from Extended Vitals)[ 12/14/2016 128/72 Last 10 Encounter Wt Readings: Date: Wt: 10/05/2017 104.3 kg (230 lb) 09/10/2017 103.4 kg (228 lb) 04/26/2017 99.3 kg (219 lb) 01/05/2017 102 kg (224 lb 12.8 oz) 12/14/2016 102 kg (224 lb 12.8 oz) 10/14/2016 103.4 kg (228 lb) 08/14/2016 101.1 kg (222 lb 12.8 oz) 08/14/2016 100.7 kg (222 lb 1.3 oz) 04/14/2016 98.9 kg (218 lb) 02/04/2016 101.6 kg (224 lb) Heart: Regular rate, rhythm, no murmurs, gallops, rubs. Lungs: Clear to auscultation, bilaterally, breathing non labored. Ext: No cyanosis, clubbing, or edema. Back: left LS spine area with tight muscle spasm with tenderness. Component Latest Ref Rng AND Units 08/14/2016 03/22/2017 08/19/2017 WBC 3.70 - 11.00 k/uL 10.21 9.90 RBC 4.20 - 6.00 m/uL 5.21 5.20 Hemoglobin 13.0 - 17.0 g/dL 15.9 15.8 Hematocrit 39.0 - 51.0 % 50.6 48.8 MCV 80.0 - 100.0 fL 97.1 93.8 MCH 26.0 - 34.0 pG 30.5 30.4 MCHC 30.5 - 36.0 g/dL 31.4 32.4 RDW-CV 11.5 - 15.0 % 14.3 13.4 Platelet Count 150 - 400 k/uL 168 161 MPV 9.0 - 12.7 fL 12.8 (H) 12.3 Neut% % 70.7 Abs Neut (ANC) 1.45 - 7.50 k/uL 7.22 Lymph% % 23.6 Abs Lymph 1.00 - 4.00 k/uL 2.41 [place]% % 4.8 Abs [place] 0.00 - 0.86 k/uL 0.49 Eosin% % 0.4 Abs Eosin 0.00 - 0.45 k/uL 0.04 Baso% % 0.5 Abs Baso 0.00 - 0.10 k/uL 0.05 Nucleated Reds 0 /100 WBC 0.0 Absolute nRBC <0.01 k/uL 0.00 <0.01 Diff Type Auto Diff Protein, Total 6.3 - 8.0 g/dL 7.1 6.6 6.7 Albumin 3.9 - 4.9 g/dL 4.6 4.4 4.3 Calcium 8.5 - 10.2 mg/dL 9.3 9.0 9.1 Bilirubin, Total 0.2 - 1.3 mg/dL 0.6 0.6 0.6 Alkaline Phosphatase 36 - 108 U/L 71 65 79 AST 14 - 40 U/L 18 20 18 Glucose 74 - 99 mg/dL 115 (H) 105 (H) 105 (H) BUN 9 - 24 mg/dL 25 (H) 19 20 Creatinine 0.73 - 1.22 mg/dL 1.10 1.10 1.18 Sodium 136 - 144 mmol/L 144 144 143 Potassium 3.7 - 5.1 mmol/L 3.9 4.0 3.9 Chloride 97 - 105 mmol/L 105 107 (H) 103 CO2 22 - 30 mmol/L 23 26 25 Anion Gap 9 - 18 mmol/L 16 11 15 ALT 10 - 54 U/L 18 18 20 eGFR- >60 >60 >60 eGFR-All Other Races . >60 >60 >60 Triglyceride 30 - 149 mg/dL 56 62 Cholesterol, Total 100 - 199 mg/dL 144 119 HDL Cholesterol >45 mg/dL 48 41 (L) VLDL Cholesterol 6 - 40 mg/dL 11 12 LDL Cholesterol 60 - 129 mg/dL 85 66 Fasting Time hrs 16 12 TC:HDL Ratio 1.00 - 5.00 3.00 2.90 LDL:HDL Ratio 0.50 - 3.55 1.77 1.61 Non HDL Cholesterol 90 - 159 mg/dL 96 78 (L) Hemoglobin A1C 4.3 - 5.6 % 5.8 (H) 5.8 (H) 6.0 (H) Estimated Average Glucose mg/dL 120 120 126 CK 51 - 298 U/L 97 78 TSH 0.400 - 5.500 uU/mL 1.030 ASSESSMENT AND PLAN: Encounter Diagnosis ICD-10-CM 1. Allergic rhinitis due to other allergic trigger, unspecified seasonality J30.89 2. Spinal stenosis, lumbar region, without neurogenic claudication M48.061 predniSONE (DELTASONE) 10 mg tablet 3. Pure hypercholesterolemia E78.00 atorvastatin (LIPITOR) 80 mg tablet LIPID PANEL BASIC 4. Lumbar spondylosis M47.816 5. Non morbid obesity due to excess calories E66.09 6. Erectile dysfunction, unspecified erectile dysfunction type N52.9 7. Encounter for long-term current use of medication Z79.899 COMP METABOLIC PANEL CBC 8. IFG (impaired fasting glucose) R73.01 COMP METABOLIC PANEL HGB A1C 9. Dizziness R42 10. Ringing in the ear, bilateral H93.13 Will try a back brace to prevent bending when working in yard, etc. Continue present management. Mark's help. Continue Mariely. Viagra prn still effective Above issues addressed with patient. Patient involved in shared decision making for management of her medical issues. History and medications reviewed. Epic updated as needed Refills taken care of and meds adjusted as indicated after reviewed history, exam and labs. Health Maintenance reviewed. Updated record and/or ordered tests as recorded. Encouraged on efforts at healthy diet and regular exercise and adequate sleep. Needs to keep working on diet and exercise with lifestyle changes for effective weight loss and prevention of DM,and control of lipids and BP. Viagra as noted in HPI. Continue present management. Refer to ENT as indicated if not able to control symptoms with current management (including Mariely) The majority of the visit was spent counseling and/or coordinating care for the patient. Rymf-kz-wlrj time was at least 25 minutes. Tutu Espinosa MD CNCO Observed: 09/24/2017 Status: COMPLETED Source: [place] 12:00 AM [facility] RE[facility] Letter Text Raphael Davis [address] [facility] [address] 09/24/2017 [facility] #: [id number] Dear , Due to a change in the provider's schedule it has been necessary to reschedule your Appointment. Your original appointment was scheduled for 10/25/2017 at 8:00 AM with Tutu Espinosa M.D. Your new appointment is now scheduled on 10/26/2017 at 8:40 AM with Indigo Ferrara. If this new appointment is not convenient for you, please contact our office at [phone]. Thank you for choosing the [facility] as your Healthcare Provider . Sincerely, Internal Medicine Appointment Office PROGRESS Observed: 09/10/2017 Status: COMPLETED Source: [place] 3:59 PM [facility] REPOSITORY HNO ID: [id number] Author: Ovi Hutchison Service: (none) Author Type: Physician Type: Progress Notes Filed: 09/10/2017 4:46 PM Note Text: PERTINENT CARDIAC HISTORY ASHD - PCI Cx 2008 HTN HL Tobaccoism ADHERENCE TO GUIDELINES SARAHI-I or ARB for HF with prior LVEF<40 (NQF 0081) - N/A ASA or Plavix for ASHD (NQF 0067) - ,et Beta sirena for ASHD with prior AR or prior LVEF<40 (NQF 0070) - N/A Beta sirena for HF with prior LVEF<40 (NQF 0083) - N/A SARHAI-I or ARB for ASHD with DM or prior LVEF<40 (NQF 0066) - met Statin therapy for ASHD or FHL or DM - met BMI documented and plan if >25 (NQF 0421) - lifestyle recommendation form Tobacco use screening and referral (NQF 0028) - lifestyle recommendation form Recommendation for whole food, plant based diet - lifestyle recommendation form CLINICAL IMPRESSION/PLAN: Raphael Davis is doing well. Blood pressure is adequately controlled. His coronary disease is stable. Lipids are acceptable. I've encouraged him to continue his current level of activity. He can try taking an antihistamine prior to going out in his yard to see if that helps with his allergy symptoms. I will see him in 8 months or as needed. If there is increased chest pain or shortness of breath, he has been advised to contact me. Written and verbal health teaching given to patient, patient verbalizes understanding and agrees with treatment plan. DIAGNOSIS FOR VISIT: ASHD Hypertension HISTORY OF PRESENT ILLNESS Raphael Davis returns for follow-up of his coronary disease. He reports stable exercise tolerance. He is having some intermittent congestion when he is outside and thinks he might be having some allergies. He's had no orthopnea. He has taken no nitroglycerin. He denies edema, palpitations, TIAs, amaurosis or claudication. He's had no further episodes of shaking and sweating. ALLERGIES: ALLERGIES Allergen Reactions - Bees Anaphylaxis - Penicillins Vomiting Can take amoxil - Shellfish Itching given benadryl with heart cath dye - tolerated - Simvastatin Other: See Comments CK Elevations and body aches - Sulfa (Sulfonamide * Doesn't know CURRENT OUTPATIENT MEDICATIONS: lisinopril (ZESTRIL, PRINIVIL) 5 mg tablet Take 1 tablet by mouth once daily. metoprolol succinate ER (TOPROL XL) 50 mg 24 hr tablet Take 0.5 tablets by mouth twice daily. sildenafil (VIAGRA) 50 mg tablet Take 1 tablet by mouth as needed. TAKE 30-60 MINUTES BEFORE SEXUAL INTERCOURSE NEEDED. atorvastatin (LIPITOR) 80 mg tablet Take 0.5 tablets by mouth once daily. predniSONE (DELTASONE) 10 mg tablet Take 1-2 tablets by mouth once daily as needed. As directed ranitidine (ZANTAC) 150 mg tablet Take 1 tablet by mouth twice daily. nitroglycerin sublingual (NITROQUICK) 0.4 mg SL tablet Dissolve 1 tablet under the tongue every 5 minutes as needed for Chest Pain. IF NO PAIN RELIEF, CALL 911 aspirin, enteric coated (ECOTRIN LOW STRENGTH) 81 mg EC tablet Take 1 tablet by mouth once daily. PHYSICAL EXAMINATION: VITAL SIGNS: BP 132/84 Pulse 56 Ht 5' 10 (1.78m) Wt 228 lb (103.4kg) BMI 32.71 kg/(m2). Chest: Clear to percussion and auscultation. Trachea is midline. Air entry is equal. Cardiac: Regular rhythm. S1 and S2 are normal. PMI is nondisplaced. There is a soft systolic ejection murmur. Carotids are brisk without bruits. JVP is less than 10 cm. Abdomen: Soft and nontender. There are no pulsatile masses or bruits. No liver enlargement. Bowel sounds are active. Extremities: No edema. Pulses are intact and symmetrical. EKG shows sinus bradycardia and no change since 02/04/16. Recent labs reviewed. Renal function is normal. LDL was 66. Electronically Signed: Ovi Hutchison MD September 10, 2017 3:59 PM CC: Tutu Espinosa MD CNOV Observed: 09/10/2017 Status: COMPLETED Source: [place] 3:30 PM [facility] [place] REPOSITORY Office Visit (AGCARDWST) RAPHAEL DAVIS ([id number]) 1960 M Date Time Provider Department 09/10/17 3:30 PM OVI HUTCHISONARDEVELINE During your visit today, we recorded the following information about you: Pulse Blood pressure Weight Height 56/minute 132/84 103.4 kg 1.778 m Ovi Hutchison MD 09/10/2017 4:46 PM Signed PERTINENT CARDIAC HISTORY ASHD - PCI Cx 2008 HTN HL Tobaccoism ADHERENCE TO GUIDELINES SARAHI-I or ARB for HF with prior LVEFANDlt;40 (NQF 0081) - N/A ASA or Plavix for ASHD (NQF 0067) - ,et Beta sirena for ASHD with prior AR or prior LVEFANDlt;40 (NQF 0070) - N/A Beta sirena for HF with prior LVEFANDlt;40 (NQF 0083) - N/A SARAHI-I or ARB for ASHD with DM or prior LVEFANDlt;40 (NQF 0066) - met Statin therapy for ASHD or FHL or DM - met BMI documented and plan if ANDgt;25 (NQ 0421) - lifestyle recommendation form Tobacco use screening and referral ([facility] 0028) - lifestyle recommendation form Recommendation for whole food, plant based diet - lifestyle recommendation form CLINICAL IMPRESSION/PLAN: Raphael Davis is doing well. Blood pressure is adequately controlled. His coronary disease is stable. Lipids are acceptable. I've encouraged him to continue his current level of activity. He can try taking an antihistamine prior to going out in his yard to see if that helps with his allergy symptoms. I will see him in 8 months or as needed. If there is increased chest pain or shortness of breath, he has been advised to contact me. Written and verbal health teaching given to patient, patient verbalizes understanding and agrees with treatment plan. DIAGNOSIS FOR VISIT: ASHD Hypertension HISTORY OF PRESENT ILLNESS Raphael Davis returns for follow-up of his coronary disease. He reports stable exercise tolerance. He is having some intermittent congestion when he is outside and thinks he might be having some allergies. He's had no orthopnea. He has taken no nitroglycerin. He denies edema, palpitations, TIAs, amaurosis or claudication. He's had no further episodes of shaking and sweating. ALLERGIES: ALLERGIES Allergen Reactions - Bees Anaphylaxis - Penicillins Vomiting Can take amoxil - Shellfish Itching given benadryl with heart cath dye - tolerated - Simvastatin Other: See Comments CK Elevations and body aches - Sulfa (Sulfonamide * Doesn't know CURRENT OUTPATIENT MEDICATIONS: lisinopril (ZESTRIL, PRINIVIL) 5 mg tablet Take 1 tablet by mouth once daily. metoprolol succinate ER (TOPROL XL) 50 mg 24 hr tablet Take 0.5 tablets by mouth twice daily. sildenafil (VIAGRA) 50 mg tablet Take 1 tablet by mouth as needed. TAKE 30-60 MINUTES BEFORE SEXUAL INTERCOURSE NEEDED. atorvastatin (LIPITOR) 80 mg tablet Take 0.5 tablets by mouth once daily. predniSONE (DELTASONE) 10 mg tablet Take 1-2 tablets by mouth once daily as needed. As directed ranitidine (ZANTAC) 150 mg tablet Take 1 tablet by mouth twice daily. nitroglycerin sublingual (NITROQUICK) 0.4 mg SL tablet Dissolve 1 tablet under the tongue every 5 minutes as needed for Chest Pain. IF NO PAIN RELIEF, CALL 911 aspirin, enteric coated (ECOTRIN LOW STRENGTH) 81 mg EC tablet Take 1 tablet by mouth once daily. PHYSICAL EXAMINATION: VITAL SIGNS: BP 132/84 Pulse 56 Ht 5' 10ANDquot; (1.78m) Wt 228 lb (103.4kg) BMI 32.71 kg/(m2). Chest: Clear to percussion and auscultation. Trachea is midline. Air entry is equal. Cardiac: Regular rhythm. S1 and S2 are normal. PMI is nondisplaced. There is a soft systolic ejection murmur. Carotids are brisk without bruits. JVP is less than 10 cm. Abdomen: Soft and nontender. There are no pulsatile masses or bruits. No liver enlargement. Bowel sounds are active. Extremities: No edema. Pulses are intact and symmetrical. EKG shows sinus bradycardia and no change since 02/04/16. Recent labs reviewed. Renal function is normal. LDL was 66. Electronically Signed: Ovi Hutchison MD September 10, 2017 3:59 PM CC: MD Ovi Waller MD 09/10/2017 4:00 PM Signed LIFESTYLE CHANGE A healthy lifestyle is the most important component of your overall treatment plan. Please give serious thought to the following areas and commit to making care home changes. EAT A WHOLE FOOD, PLANT BASED DIET The nutrition your body gets is more important than the medicine you take. What matters most is the overall way you eat. We encourage you to minimize the use of animal products (which include dairy and all meats except fatty fish) and use whole, unprocessed plant foods to provide your protein, vitamins and other nutrients. We have a lot of information to share with you on this topic. We also hold Shared Medical Appointments, where you can come visit with Dr. Hutchison in the company of other patients and spend over an hour talking about the challenges of changing the way you eat. This is not a ANDquot;dietANDquot;. It is a way of life that you will keep with you. EXERCISE REGULARLY It is not important to spend hours in the gym, lifting weights and perspiring heavily. A total of 2-3 hours per week of aerobic (causing you to be moderately short of breath) exercise is sufficient to improve your health. Talk to us before you begin a new exercise program, if you have heart disease or experience shortness of breath or chest pain. REDUCE STRESS Chronic emotional and physical stress leads to disease. Ways of reducing stress include meditation, visualization, prayer, yoga and other forms of relaxation therapy. Consistency is the ceja. Find a technique that works for you and do it every day. CULTIVATE RELATIONSHIPS Loneliness and isolation have a major negative impact on health. Seek out others who can love, care for and nurture you. Avoid hurtful relationships. MAINTAIN IDEAL BODY WEIGHT The best way to do this is to do all the things above. Our bodies naturally find the right weight if we keep moving and feed ourselves the right food. If your BMI is greater than 25, we strongly recommend a referral to a weight management program. Please speak to us or your family physician about available programs. AVOID NICOTINE IN ALL FORMS This includes all tobacco products, whether chewed, smoked, vaped, or rubbed on the skin. Smoking cessation programs, which can make use of tobacco substitutes, medications to suppress cravings and behavior management, are available. Please contact your family physician about programs in your area. Referring Provider: SAEED FRAUSTO ([facility]) [[id number]] Allergies As of Date: 09/10/2017 Noted Allergy Reaction BEES 03/01/2008 10 - Anaphylaxis PENICILLINS 06/04/2006 11 - Vomiting Comments: Can take amoxil SHELLFISH 10/31/2007 9 - Itching Comments: given benadryl with heart cath dye - tolerated SIMVASTATIN 12/10/2015 14 - Other: See Comments Comments: CK Elevations and body aches SULFA (SULFONAMIDE ANTIBIOTICS) 10/31/2007 Comments: Doesn't know Date Reviewed: 09/10/2017 Reviewed by: Ale Paul - Fully Assessed Primary Visit Diagnosis:ASHD (arteriosclerotic heart disease) [I25.10] Other Visit Diagnosis:Hypertension, essential [I10] Prescriptions as of 09/10/2017 Sig: LISINOPRIL 5 MG TABLET Take 1 tablet by mouth once d* METOPROLOL SUCCINATE ER 50 MG* Take 0.5 tablets by mouth twi* SILDENAFIL 50 MG TABLET Take 1 tablet by mouth as nee* ATORVASTATIN 80 MG TABLET Take 0.5 tablets by mouth onc* PREDNISONE 10 MG TABLET Take 1-2 tablets by mouth onc* RANITIDINE 150 MG TABLET Take 1 tablet by mouth twice * NITROGLYCERIN 0.4 MG SUBLINGU* Dissolve 1 tablet under the t* ASPIRIN 81 MG TABLET,DELAYED * Take 1 tablet by mouth once d* Problem List As Of Date 09/10/2017 Noted Resolved Coronary atherosclerosis [I25.10] Other acute and subacute form of ischemic heart*INVALID FOR*11/01/2016 More... Family history of diabetes mellitus [Z83.3] INVALID FOR*05/02/2015 Family history of ischemic heart disease [Z82.4*INVALID FOR*05/02/2015 TOBACCO USE DISORDER [F17.200] INVALID FOR* More... More... Hyperlipidemia [E78.5] INVALID FOR* Tear of medial cartilage or meniscus of knee, c*INVALID FOR*05/02/2015 Pain in Joint, Shoulder Region [M25.519] INVALID FOR* Other affections of shoulder region, not elsewh*INVALID FOR*05/02/2015 Biceps tendonitis [M75.20] INVALID FOR*05/02/2015 Spinal stenosis, lumbar region, without neuroge*INVALID FOR* More... Capsulitis [M77.9] INVALID FOR*05/02/2015 GUERA (obstructive sleep apnea) [G47.33] More... 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] INVALID FOR* Actinic Keratoses: Premalignant AK's [L57.0] INVALID FOR* Other Seborrheic Keratoses [L82.1] INVALID FOR* Excoriation [T14.8XXA] INVALID FOR*05/02/2015 Solar Lentigines [L81.4] INVALID FOR* Ephelides [L81.2] INVALID FOR* Actinic skin damage [L57.8] INVALID FOR*05/02/2015 Chronic back pain [M54.9, G89.29] INVALID FOR* Lumbar spondylosis [M47.816] INVALID FOR* Ulnar neuropathy of left upper extremity [G56.2*INVALID FOR* Neoplasm of Uncertain Behavior (NUB) of skin: R*INVALID FOR* Scar condition and fibrosis of skin [L90.5] INVALID FOR*05/02/2015 Hypertrophic scar [L91.0] INVALID FOR* Keloid scar [L91.0] INVALID FOR* Personal history of other malignant neoplasm of*INVALID FOR*03/18/2013 Surgical Scars [L90.5] INVALID FOR*05/02/2015 Postinflammatory skin changes [R23.4] INVALID FOR*05/02/2015 H/O BCC Skin Cancer left confucianist: S/P Moh's Surg*INVALID FOR*05/02/2015 Acute pancreatitis [K85.90] INVALID FOR*04/26/2017 BPH (benign prostatic hyperplasia) [N40.0] INVALID FOR* Kidney stone [N20.0] INVALID FOR* Obesity, unspecified [E66.9] INVALID FOR*03/13/2015 Non morbid obesity due to excess calories [E66.*INVALID FOR* Other instructions from your clinician: LIFESTYLE CHANGE A healthy lifestyle is the most important component of your overall treatment plan. Please give serious thought to the following areas and commit to making care home changes. EAT A WHOLE FOOD, PLANT BASED DIET The nutrition your body gets is more important than the medicine you take. What matters most is the overall way you eat. We encourage you to minimize the use of animal products (which include dairy and all meats except fatty fish) and use whole, unprocessed plant foods to provide your protein, vitamins and other nutrients. We have a lot of information to share with you on this topic. We also hold Shared Medical Appointments, where you can come visit with Dr. Hutchison in the company of other patients and spend over an hour talking about the challenges of changing the way you eat. This is not a diet. It is a way of life that you will keep with you. EXERCISE REGULARLY It is not important to spend hours in the gym, lifting weights and perspiring heavily. A total of 2-3 hours per week of aerobic (causing you to be moderately short of breath) exercise is sufficient to improve your health. Talk to us before you begin a new exercise program, if you have heart disease or experience shortness of breath or chest pain. REDUCE STRESS Chronic emotional and physical stress leads to disease. Ways of reducing stress include meditation, visualization, prayer, yoga and other forms of relaxation therapy. Consistency is the ceja. Find a technique that works for you and do it every day. CULTIVATE RELATIONSHIPS Loneliness and isolation have a major negative impact on health. Seek out others who can love, care for and nurture you. Avoid hurtful relationships. MAINTAIN IDEAL BODY WEIGHT The best way to do this is to do all the things above. Our bodies naturally find the right weight if we keep moving and feed ourselves the right food. If your BMI is greater than 25, we strongly recommend a referral to a weight management program. Please speak to us or your family physician about available programs. AVOID NICOTINE IN ALL FORMS This includes all tobacco products, whether chewed, smoked, vaped, or rubbed on the skin. Smoking cessation programs, which can make use of tobacco substitutes, medications to suppress cravings and behavior management, are available. Please contact your family physician about programs in your area. Encounter Status:Closed by OVI HUTCHISON MD on 09/10/17 CBC Collected: 08/19/2017 Status: F Source: PROVO 9:06 AM [facility] REPOSITORY TYPE CODE TESTS RESULT OUT OF REFERENCE UNITS RANGE LAB WBC 3.70-11.00 k/uL WBC 9.90 LAB RBC 4.20-6.00 m/uL RBC 5.20 LAB HGB 13.0-17.0 g/dL Hemoglobin 15.8 LAB HCT 39.0-51.0 % Hematocrit 48.8 LAB MCV 80.0-100.0 fL MCV 93.8 LAB MCH 26.0-34.0 pG MCH 30.4 LAB MCHC 30.5-36.0 g/dL MCHC 32.4 LAB RDWCV 11.5-15.0 % RDW-CV 13.4 LAB PLTCT 150-400 k/uL Platelet Count 161 LAB MPV 9.0-12.7 fL MPV 12.3 LAB ABSNUC <0.01 k/uL Absolute nRBC <0.01 Performed By: #### CBC, HBA1C, CMP #### [facility] [address] [place], [place] [address] HEMOGLOBIN A1C Collected: 08/19/2017 Status: F Source: PROVO 9:06 AM [facility] REPOSITORY TYPE CODE TESTS RESULT OUT OF REFERENCE UNITS RANGE LAB HGBA1C 4.3-5.6 % High Hemoglobin A1c 6.0 LAB HBA0 mg/dL Est. Average Glucose 126 Result Comment: eAG: (Estimated average glucose) is a calculated value from HgbA1c and is accounts receivable representative of the average blood glucose level in the last 2-3 month period. Performed By: #### CBC, HBA1C, CMP #### [facility] [address] [place], [place] [address] COMP METABOLIC PANEL Collected: 08/19/2017 Status: F Source: PROVO 9:06 AM [facility] REPOSITORY TYPE CODE TESTS RESULT OUT OF REFERENCE UNITS RANGE LAB TP 6.3-8.0 g/dL Protein, Total 6.7 LAB ALB 3.9-4.9 g/dL Albumin 4.3 LAB CA 8.5-10.2 mg/dL Calcium, Total 9.1 LAB TBIL 0.2-1.3 mg/dL Bilirubin, Total 0.6 LAB ALKP 36-108 U/L Alkaline Phosphatase 79 LAB AST 14-40 U/L AST 18 LAB GLU 74-99 mg/dL Glucose High 105 Result Comment: The [place] [employer] (ADA) provides guidance for cutoff values for fasting glucose and random glucose. The ADA defines fasting as no caloric intake for at least 8 hours. Fas ting plasma glucose results between 100 to 125 mg/dL indicate increased risk for diabetes (prediabetes). Fasting plasma glucose results greater than or equal to 126 mg/dL meet the criteria for diagnosis of diabetes. In the absence of unequivocal hyperglycemia, results should be confirmed by repeat testing. In a patient with classic symptoms of hyperglycemia or hyperglycemic crisis, random plasma glucose results greater than or equal to 200 mg/dL meet the criteria for diagnosis of diabetes. Reference: Standards of Medical Care in Diabetes 2016, [place] [employer]. Diabetes Care. 2016.39(Suppl 1). LAB BUN 9-24 mg/dL BUN 20 LAB CRET 0.73-1.22 mg/dL Creatinine 1.18 LAB NA 136-144 mmol/L Sodium 143 LAB K 3.7-5.1 mmol/L Potassium 3.9 LAB CL 97-105 mmol/L Chloride 103 LAB CO2 22-30 mmol/L CO2 25 LAB AGAP 9-18 mmol/L Anion Gap 15 LAB ALT 10-54 U/L ALT 20 LAB GFRAA eGFR- Amer. >60 LAB GFRNAA . eGFR-All Other Races >60 Result Comment: eGFR (Estimated GFR) Units of measure: mL/min/1.73 meters squared eGFR is derived from the reexpressed MDRD Study equation using the following parameters: serum creatinine, age, gender and race. The creatinine assay has been calibrated to be traceable to IDMS. An eGFR <60 mL/min/1.73m2 for >3 months is consistent with chronic kidney disease. Refer to KDOQI guidelines for clinical interpretation. In patients with unstable renal function, e.g. those with acute kidney injury, the eGFR may not accurately reflect actual GFR. Performed By: #### CBC, HBA1C, CMP #### [facility] [address] [place] [address] ALLERGIES ALLERGIES DATE TYPE / NAME / CODE REACTION SEVERITY SOURCE CODE 05/01/2018 Drug Penicillins/F0010 Vomiting Unknown [place] Allergy/41 06766(RXNORM) Community 5605031([facility] OMED [facility]) Repository 05/01/2018 Drug Sulfa Anaphylaxis SV [facility] Allergy/41 (Sulfonamide Community 4831255( Antibiotics)/F[address]) 083503(RXNORM) Repository 05/01/2018 Drug venom-honey Anaphylaxis [facility] Allergy/41 bee/[id number](RX Community 8948365(SN NORM) Hospital OMED CT) Repository 05/01/2018 Drug shellfish Anaphylaxis SV Yoana Allergy/41 derived/[id number] Community 1961307( 4(RXNORM) Hospital OMED CT) Repository 12/10/2015 DRUG SIMVASTATIN OTHER: SEE C [facility] INGREDI/41 [place] 4312427( Repository OMED CT) 03/01/2008 Environ/42 BEES ANAPHYLAXIS [facility] 6072032( [place] O[place]) Repository 10/31/2007 Food/38227 SHELLFISH ITCHING [facility] 1000(SNOME [place] D CT) Repository 10/31/2007 Drug [facility]UL[facility] Class/4195 (SULFONAMIDE [place] [address](SNOM ANTIBIOTICS) Repository ED CT) 06/04/2006 Drug PENICILLINS Vomiting [facility] Class/4195 [place] [address](SNOM Repository ED CT) NG/6455158 BEES [facility] 06(SNOMED [facility]) Repository NG/9620112 PENICILLINS [facility] 06(SNOMED [facility]) Repository NG/8089093 SHELLFISH [facility] 06(SNOMED [facility]) Repository NG/8870057 SIMVASTATIN [facility] 06(SNOMED [facility]) Repository NG/0714211 SULFA [facility] 06(SNOMED (SULFONAMIDE Health System CT) ANTIBIOTICS) Repository ENCOUNTERS ENCOUNTERS ADMIT/DISCHARGE ACCOUNT NUMBER ADMITTING ENCOUNTER LOCATION SOURCE CLASS 05/25/2018/05/26/19 [id number] Ambulatory [address] [place] Repository 05/25/2018 [id number] Ambulatory [facility] MEDICAL Repository CENTERBuildi ng:CAGWS 05/01/2018/05/01/20 [id number] Emergency [place] ding:ED Repository 04/12/2018/04/29/20 [id number] Ambulatory [address] [place] Repository 04/04/2018/04/04/20 [id number] Ambulatory [address] [place] Repository 10/05/2017/10/19/19 [id number] Ambulatory [address] [place] Repository 09/10/2017/09/11/19 [id number] Ambulatory [address] [place] Repository 09/10/2017/09/11/19 [id number] Ambulatory [address] MEDICAL Repository CENTERBuildi ng:CAGWS 08/19/2017 [id number] Ambulatory [facility] Repository PAYERS PAYERS ENCOUNTER GUARANTOR PAYER SUBSCRIBER SOURCE 05/25/2018 RAPHAEL A Primary RAPHAEL A [facility] Insurance:MEDICARE [facility]: [facility] [id number] AND BPolicy Number: [id number] [facility] [id number] [address] [place] [address] Date: 49549Etv: () 05/25/2018 Secondary RAPHAEL A [facility] Insurance:[facility]: Health System MEDICAIDPolicy [id number] Repository Number: [id number] Date: 05/01/2018 Raphael A Primary Raphael A Yo[facility] Insurance:MEDICARE [facility]: [facility] [id number] PART A BPolicy [id number] Number: [place], [place] [id number] [address]Zqn: (330) Date:2018-05-01 [phone] (HP) 05/01/2018 Secondary Raphael A Yo[place] [facility] Number: [id number] [facility] [id number] Repository Date:2018-05-01 05/01/2018 Tertiary NOT GIVENUNK Yoana Insurance:SELF PAY [facility] Number: Effective Repository Date:2018-05-01 09/10/2017 RAPHAEL A Primary RAPHAEL A [facility] Insurance:[facility]: Health System [id number] AND BPolicy Number: [id number] Repository [facility] [id number] [address] [place] [address] Date: [id number]: (HP) 09/10/2017 Secondary RAPHAEL A [facility] Insurance:[facility]: Health System MEDICAIDPolicy [id number] Repository Number: [id number] Date:
== END 2018-05-01 22:04 | disposition home or self-care (01) ==
LOC: ED 21:26
PROVIDERS: Emergency Provider Emergency Medicine; Family Provider Internal Medicine; PCP Internal Medicine
DX: K92.2 Gastrointestinal hemorrhage, unspecified (principal); I25.10 Atherosclerotic heart disease of native coronary artery without angina pectoris; I10 Essential (primary) hypertension; Z72.0 Tobacco use; Z87.11 Personal history of peptic ulcer disease; K64.8 Other hemorrhoids
CPT/HCPCS: 80048; 85025; 86850; 86900; 96360; 99284; J7030

== ENCOUNTER 2023-01-24 22:57 | Emergency (ER) | payer MEDICARE, SELFPAY ==
[2023-01-24 22:58] VITALS: BP 168/90; PULSE 51; RESP 20; TEMP 36.6; O2SAT 100; BMI 29.9
--- NOTE | 2023-01-24 23:09 | CT_ITS ---
INDICATION: Kidney Stone. Right-sided pain, with nausea. History of kidney stones. EXAMINATION: CT ABDOMEN AND PELVIS WITHOUT CONTRAST TECHNIQUE: Helically acquired images were obtained of the abdomen and pelvis without IV contrast. 2-D reconstructions reviewed. A radiation dose optimization technique was used for this scan. IV Contrast dosage and agent: None. Oral contrast: None. COMPARISON: Unenhanced CT abdomen and pelvis from 04/09/2015 FINDINGS: LOWER CHEST: Mild scarring and benign punctate granulomatous calcification left lung base. Normal size heart with coronary arterial calcifications. LIVER: Homogeneous. No discrete mass. GALLBLADDER AND BILIARY TREE: No calcified gallstones identified. No pericholecystic edema demonstrated. No significant biliary ductal dilation. PANCREAS: No discrete mass or peripancreatic edema. SPLEEN: Normal size without discrete mass. ADRENAL GLANDS: Unremarkable. KIDNEYS AND URETERS: Right renal edema and mild hydroureteronephrosis secondary to 2 mm ureterovesical junction stone. Small low-attenuation lesion within upper pole cortex of left kidney likely benign cysts. No additional follow-up recommended at this time. PERITONEUM: No significant free peritoneal fluid. No free air detected. RETROPERITONEUM: No retroperitoneal mass or pathologic fluid collection. BOWEL: No evidence of acute appendicitis. No bowel obstruction or significant bowel thickening. No focal inflammatory change. LYMPH NODES: No enlarged mesenteric or retroperitoneal lymph nodes. VESSELS: Atherosclerotic calcifications with no abdominal aortic aneurysm. URINARY BLADDER: Partially distended with small 2 mm right UVJ stone. REPRODUCTIVE ORGANS: Tiny dystrophic calcifications within prostate gland. ABDOMINAL WALL: No acute findings. BONES: Skeletal degenerative changes. CT/Abdomen/Pelvis without Cont IMPRESSION: Mild right obstructive uropathy secondary to 2 mm UVJ stone. Electronically Signed: Kris Vigil MD at 0:16 EDT ,
[2023-01-24 23:24] LABS: Absolute Lymphocyte Count 2.05 X10^3/uL (0.83-4.51); Basophil# 0.07 X10^3/uL; Basophil% 0.4 % (0-1); Eosinophil# 0.22 X10^3/uL; Eosinophils% 1.2 % (0-5); Hemoglobin 14.6 g/dL (13.0-16.5); Lymphocyte # 2.05 X10^3/ul (0.83-4.51); Lymphocyte % 11.2 % (19-41); Mean Corp Hgb Conc 32.4 g/dL (32-36); Mean Corpuscular Hgb 30.9 pg (27.0-32.0); Mean Corpuscular Volume 95.3 fL (80-94); Mean Platelet Vol. 11.8 fl (6.2-12.0); Monocyte# 0.91 X10^3/uL; NRBC Flagged by Analyzer 0 % (0-5); Neutrophil # 14.96 X10^3/uL (2.7-7.7); Neutrophil % 81.7 % (47-70); Platelet Count 182 K/mm3 (150-450); RBC Distribution Width CV 14.4 % (11.6-14.6); Red Blood Count 4.72 M/mm3 (4.6-6.2); White Blood Count 18.3 K/mm3 (4.4-11.0)
[2023-01-24 23:29] LABS: Mucous, Urine 0 SEEN /hpf (<or=2+); Red Blood Cells-Urine 0 SEEN /hpf (0-5)
[2023-01-24 23:31] LABS: Color, Urine Yellow (Yellow); Glucose, Dipstick Normal (Normal); Ketone-Dipstick 5 mg/dl (Negative); Leukocyte Esterase-Dipstick 25 /ul (Negative); Nitrite-Dipstick Negative (Negative); Occult Blood-Urine 50 /ul (Negative); Protein-Dipstick 30 mg/dl (Negative); Urine Clarity Cloudy (Clear); Urine Urobilinogen 4 mg/dl (Normal)
[2023-01-24 23:32] LABS: Urine Bilirubin Dipstick 1 mg/dL (Negative)
[2023-01-24 23:40] LABS: Anion Gap 4 (5-15); BUN 21 mg/dL (7-18); BUN/Creat Ratio 13.9 RATIO (10-20); Calcium,Total 9.4 mg/dL (8.5-10.1); Chloride 113 mmol/L (98-107); Creatinine, Serum 1.51 mg/dL (0.70-1.30); EST Glomerular Filtration Rate 50 mL/min (>60); Est Glom Filt Rate - Afr Amer 60 mL/min (>60); Glucose 174 mg/dL (74-106); Potassium 3.4 mmol/L (3.5-5.1); Sodium Level 142 mmol/L (136-145)
[2023-01-24 23:42] LABS: Amorphous Sediment 3+; Bacteria 3+ /hpf (None Seen); Squamous Epithelial Cells - UA 0-5 SEEN /hpf (0-5); White Blood Cells 0-5 SEEN /hpf (0-5)
--- NOTE | 2023-01-24 23:56 | EDS_ITS ---
HPI HPI - GI History of Present Illness Chief Complaint: Flank Pain Narrative Narrative: 61-year-old male presenting with right-sided flank pain. Patient states it started earlier today, resolved itself. Then it came back. He states it feels like a toothache in his side. Describes the pain as sharp. Is a history of kidney stones but states it does not feel similar. No dysuria. No diarrhea or constipation. No fever but complains of a chill. [facility] Medical History (Updated 01/25/23 @ 00:[address] Ori Keene DO) Kidney stones Home Medications lisinopril 20 mg tablet 20 mg PO BID 03/24/13 [History Last Taken 03/23/13] metoprolol succinate 25 mg tablet,extended release 24 hr 25 mg PO DAILY 03/24/13 [History Last Taken 03/23/13] nitroglycerin 0.4 mg sublingual tablet 0.4 mg sublingual Q5M PRN Chest Pain 03/24/13 [History Last Taken Unknown] simvastatin 40 mg tablet 40 mg PO QHS 03/24/13 [History Last Taken 03/23/13] aspirin 81 mg tablet,delayed release (Adult Low Dose Aspirin) 81 mg PO DAILY 01/24/23 [History Last Taken Unknown] omeprazole 20 mg capsule,delayed release 40 mg PO BID 01/24/23 [History Last Taken Unknown] ciprofloxacin HCl 500 mg tablet (Cipro) 500 mg PO BID 7 days #14 tabs 01/25/23 [Rx Last Taken Unknown] hydrocodone-acetaminophen 5-325mg 5mg-325mg 1 tab PO Q4H PRN PRN Pain 3 days #12 TABLETS 01/25/23 [Rx Last Taken Unknown] ondansetron 4 mg disintegrating tablet 4 mg PO Q8H PRN PRN Nausea #14 tabs 01/25/23 [Rx Last Taken Unknown] Allergy/AdvReac Type Severity Reaction Status Date / Time shellfish derived Allergy Severe Anaphylaxis Verified 01/24/23 23:00 Sulfa (Sulfonamide Allergy Severe Anaphylaxis Verified 01/24/23 23:00 Antibiotics) venom-honey bee Allergy Severe Anaphylaxis Verified 01/24/23 23:00 [bee venom (honey bee)] Penicillins AdvReac Vomiting Verified 01/24/23 23:00 Social History Smoking Status: Current every day smoker tobacco type: cigarettes ROS ROS ED Constitutional Constitutional ED: Reports chills; Denies fever(s) or sweats Eyes Eyes: Denies blurry vision or change in vision ENT ENT ED: Denies ear pain or sore throat Cardiovascular Cardiovascular: Denies chest pain, palpitations or racing heartbeat Respiratory/Chest Respiratory/Chest: Denies cough, dyspnea or sputum Gastrointestinal Gastrointestinal: Reports abdominal pain and nausea; Denies constipation, diarrhea or vomiting Genitourinary Genitourinary ED: Denies dysuria, hematuria or urinary frequency Musculoskeletal Musculoskeletal: Denies arthralgias, myalgias or neck pain Integumentary Denies abscess, Abrasions or rash Neurologic Neurologic: Denies headache(s), paresthesias or weakness Psychiatric Psychiatric: Denies anxiety, depression, suicidal ideation or suicidal thoughts Endocrine Endocrinology: Denies polydipsia or polyuria EXAM Physical Exam Const Vital Signs: 01/24/23 22:58 Temperature 97.9 F Temperature Source Temporal Pulse Rate 51 L Respiratory Rate 20 H Blood Pressure 168/90 H Blood Pressure Mean 116 Pulse Ox 100 Oxygen Delivery Method Room Air Positive well nourished General Appearance ED: NAD; Negative for pallor HEENT normocephalic and atraumatic Eyes PERRL and EOMs intact bilaterally Resp normal respiratory effort and clear to auscultation bilaterally Cardio regular rate and regular rhythm GI Palpation: tender RLQ Back/Spine General Back: CVA tenderness right Neuro CN's II-XII intact bilaterally and moves all extremities Skin General Skin Exam: Negative for jaundice or pallor MDM MDM MDM Narrative Medical decision making narrative: Patient presenting with right-sided abdominal pain. He does have some mild CVA tenderness and mild right-sided abdominal tenderness. Differential includes colitis, diverticulitis, appendicitis, dehydration, electrolyte abnormalities, UTI, kidney stone, pyelonephritis. CBC was obtained to assess white blood cell count, hemoglobin, platelets. BMP to assess renal function and electrolytes. Urinalysis to assess for UTI. Patient medicated with morphine, Zofran. He is given a liter of normal saline. CBC shows leukocytosis of 18.3. Hemoglobin at 14.6. Platelets normal at 182. Creatinine elevated at 1.51 however patient was given a liter of normal saline. Potassium slightly low at 3.4. Urinalysis with negative nitrites. Leukocyte Estrace 25. Urine WBCs 0-5, squamous epithelial cells 0-5. There is bacteria which is 3+. This is somewhat contaminated however I will cover him with Cipro. Patient CT scan shows a 2 mm UVJ stone on the right. This will likely pass. Patient given [place], Zofran, Cipro for home. Return precautions discussed. Impression: 1. Pyelonephritis 2. UVJ stone 2 mm 3. Leukocytosis Lab Data Attestation: I reviewed the patient's lab results. Labs: Laboratory Results - last 24 hr 01/24/23 01/24/23 23:17 23:27 WBC 18.3 H RBC 4.72 Hgb 14.6 Hct 45.0 MCV 95.3 H MCH 30.9 MCHC 32.4 RDW Std Deviation 50.0 H RDW Coeff of Antonio 14.4 Plt Count 182 MPV 11.8 Immature Gran % (Auto) 0.500 Neut % (Auto) 81.7 H Lymph % (Auto) 11.2 L [place] % (Auto) 5.0 Eos % (Auto) 1.2 Baso % (Auto) 0.4 Absolute Neuts (auto) 15.0 H Absolute Lymphs (auto) 2.05 Nucleated RBC % 0 Sodium 142 Potassium 3.4 L Chloride 113 H Carbon Dioxide 25.0 Anion Gap 4 L BUN 21 H Creatinine 1.51 H Estim Creat Clear Calc 51.70 Est GFR (MDRD) Af Amer 60 Est GFR (MDRD) Non-Af 50 L BUN/Creatinine Ratio 13.9 Glucose 174 H Calcium 9.4 Urine Color Yellow Urine Clarity Cloudy Urine pH 5.0 Ur Specific Tyler 1.030 Urine Protein 30 H Urine Glucose (UA) Normal Urine Ketones 5 H Urine Occult Blood 50 H Urine Nitrite Negative Urine Bilirubin 1 H Urine Urobilinogen 4 H Ur Leukocyte Esterase 25 H Urine RBC 0 SEEN Urine WBC 0-5 SEEN Ur Squamous Epith Cells 0-5 SEEN Amorphous Sediment 3+ Urine Bacteria 3+ Urine Mucus 0 SEEN Radiography Diagnostic Testing: Clinical Impression(s) from Imaging Studies Abdomen/Pelvis CT 01/24/23 23:09 IMPRESSION: Mild right obstructive uropathy secondary to 2 mm UVJ stone. Electronically Signed: Kris Vigil MD at 0:16 EDT , Discharge Plan Triage Chief Complaint: Flank Pain ED Provider: Ori Keene Dx/Rx/DC Orders Instructions: ED Kidney Stone w/ Colic, ED Pyelonephritis, Male (Adult) Prescriptions: New ciprofloxacin HCl [Cipro] 500 mg tablet 500 mg PO BID 7 Days Qty: 14 0RF hydrocodone-acetaminophen 5-325 mg tablet 1 tab PO Q4H PRN PRN (Reason: Pain) 3 Days Qty: 12 0RF ondansetron 4 mg tablet,disintegrating 4 mg PO Q8H PRN PRN (Reason: Nausea) Qty: 14 0RF No Action lisinopril 20 MG tablet 20 mg PO BID Patient Comments: BLOOD PRESSURE simvastatin 40 MG tablet 40 mg PO QHS Patient Comments: CHOLESTEROL metoprolol succinate 25 MG tablet 25 mg PO DAILY Patient Comments: BLOOD PRESSURE nitroglycerin 0.4 MG tablet 0.4 mg sublingual Q5M PRN (Reason: Chest Pain) Patient Comments: CHEST PAIN, ANGINA omeprazole 20 mg capsule,delayed release(DR/EC) 40 mg PO BID Patient Comments: take 1 capsule by mouth twice a day 1/2 HOUR BEFORE MEALS aspirin [Adult Low Dose Aspirin] 81 mg tablet,delayed release (DR/EC) 81 mg PO DAILY Primary Care Provider: Paula Espinosa Referrals: Paula Espinosa MD [Primary Care Provider] - Disposition Disposition: Home, Self Care
[2023-01-25] MEDS: Morphine 4 MG/ML Syringe IV (00:08)
[2023-01-25] MEDS: 0.9% Normal Saline (1000mL) 1,000 ML 999 ML IV (00:08)
[2023-01-25] MEDS: Ondansetron 4 MG/2 ML Vial IV (00:08)
[2023-01-25] MEDS: Ciprofloxacin 500 MG Tablet PO (00:42)
[2023-01-25 00:45] VITALS: BP 170/90; PULSE 50; RESP 15; O2SAT 98
== END 2023-01-25 01:16 | disposition home or self-care (01) ==
PROVIDERS: Emergency Provider Student in an Organized Health Care Education/Training Program; PCP Internal Medicine; Visit Provider Student in an Organized Health Care Education/Training Program
DX: N12 Tubulo-interstitial nephritis, not specified as acute or chronic (principal); D72.829 Elevated white blood cell count, unspecified; F17.210 Nicotine dependence, cigarettes, uncomplicated; N20.1 Calculus of ureter
CPT/HCPCS: 74176; 80048; 81001; 85025; 96361; 96374; 96375; 99284; J7030; A4216; J2405